=== PATIENT | male | born 1970 | race Caucasian/White ===

== ENCOUNTER → 2016-08-31 | Outpatient (CLI) | payer BC ==
[2016-08-31 13:15] LABS: Basophils % (A) 1 %; CH 31.8; CHCM 36.5; Eosinophils # (A) 0.2 k/uL (0-0.7); Eosinophils % (A) 2 %; HGB 16.5 gm/dL (13.0-17.5); Luc # (Auto) 0.16; Luc % (Auto) 2; Lymphocytes # (A) 2.5 k/uL (1.0-4.8); Lymphocytes % (A) 32 %; MCH 30.6 pg (25.0-35.0); MCV 87.3 fL (80.0-100.0); Mean Platelet Volume 7.2; Monocytes # (A) 0.3 k/uL (0-1.0); Monocytes % (A) 4 %; Neutrophils # (A) 4.5 k/uL (1.3-7.7); Neutrophils % (A) 59 %; RBC 5.39 m/uL (4.30-5.90); RDW 13.6 % (11.5-15.5); WBC 7.6 k/uL (3.8-10.6); WBC (Perox) 7.79
[2016-08-31 13:35] LABS: ALT 114 U/L (21-72); AST 65 U/L (17-59); Alkaline Phosphatase 99 U/L (38-126); Anion Gap 11 mmol/L; Blood Urea Nitrogen 12 mg/dL (9-20); Calcium 9.8 mg/dL (8.4-10.2); Carbon Dioxide 27 mmol/L (22-30); Chloride 102 mmol/L (98-107); Cholesterol 200 mg/dL (<200); Glucose 146 mg/dL (74-99); HDL Cholesterol 48 mg/dL (40-60); Non-African American GFR(MDRD) >60 (>60 ml/min/1.73 sqM); Potassium 4.3 mmol/L (3.5-5.1); Sodium 140 mmol/L (137-145); Total Bilirubin 1.1 mg/dL (0.2-1.3); Total Protein 7.8 g/dL (6.3-8.2); Triglycerides 109 mg/dL (<150)
[2016-08-31 15:09] LABS: Erythrocyte Sedimentation Rate 8 mm/hr (0-15)
== END | disposition home or self-care (01) ==
LOC: LABWHC1 12:59
PROVIDERS: ATTEND Internal Medicine
DX: E78.2 Mixed hyperlipidemia (principal); I10 Essential (primary) hypertension
CPT/HCPCS: 36415; 80053; 80061; 85025; 85652

== ENCOUNTER → 2016-10-27 | Outpatient (CLI) | payer BC ==
--- NOTE | 2016-10-27 15:06 | CONS ---
DATE OF SERVICE: 10/27/2016 A 46-year-old gentleman who has been evaluated in the [facility] for obstructive sleep apnea hypopnea syndrome. HISTORY OF PRESENT ILLNESS/SLEEP-WAKE EVALUATION: Patient has been diagnosed with severe obstructive sleep apnea-hypopnea syndrome from result of home sleep study 2 years ago. For different reason at that time, he was not able to proceed with CPAP therapy. At the present time, patient continues to have his symptoms of tiredness, sleepiness, snoring and awakenings from sleep. His sleep schedule from 1 to 2 a.m. until 8 - 9 a.m. basically 7 days as week, sometimes he has problem with the falling asleep. He has TV set in bedroom. Prefers to sleep on the side. He snores and has episodes of stop breathing during the sleep. He is grinding his teeth. He wakes up from sleep 3 times with nocturia. In the morning, he feels tired, falling asleep during the day. Ortley sleepiness scale, significantly increased to 15. Past medical history positive for hypertension, multiple ear problems. PAST SURGICAL HISTORY: Multiple surgery on the ears for holes and infection, status post surgical treatment of lipoma of the left arm and umbilical hernia. MEDICATIONS: Amlodipine. SOCIAL HISTORY: Negative for smoking, alcohol consumption occasional. FAMILY HISTORY: Hypertension, arthritis, sleep apnea, snoring, cancer, diabetes. REVIEW OF SYSTEMS: Multiple awakenings from sleep, sleepiness during the day. During physical exam, a 46-year-old gentleman without distress. BP 129/87, HR 88, RR is 16, 5, 11, weight 323, BMI 45, neck 19-3/4 inches in circumference, temperature 98.8, oxygen saturation on room air 95%. OROPHARYNX: Moderately low position of soft palate, significantly stricture of nasal breathing on the left side. ABDOMEN: Obese. EXTREMITIES: Tendency for swelling of ankles. NECK: Supple, No JVD. Thyroid is not palpable. LUNGS: Clear to percussion and to auscultation. Good air exchange. No wheezing or rhonchi. HEART: S1, s2 regular. No murmurs, gallops or rubs. VIDEO EDITING INTERN: Awake, alert, and oriented x3. Cranial nerves 2 to 7 intact. There is no fasciculation or atrophy noted. No focal deficits observed. IMPRESSION: 1. Snoring, witnessed episodes of stopped breathing during the sleep, history of severe obstructive sleep apnea documented by home sleep apnea test 2 years ago. Moderately low soft palate, sleepiness, Ortley Sleepiness scale to 15, obstructive apnea-hypopnea syndrome. 2. Obesity. 3. Hypertension. 4. Status post multiple ear surgeries for holes in the eardrums and infections. 5. Status post left arm lipoma removed. 6. Status post umbilical hernia treatment. PLAN: 1. Home sleep apnea test for reevaluation of patient breathing during the sleep. 2. Titration with positive air pressure. 3. Watching and losing weight. 4. Sleep hygiene with regular time in bed for at least 8 hours. 5. No driving if feeling any sleepiness. Thank you very much for referring this patient for consultation. Sincerely, Sami Perez MD, PhD, FAASM. Diplomat of [place] [employer], Sleep Medicine Board by [place] [employer] Forensics Analyst of [facility] [place] [facility]
== END | disposition home or self-care (01) ==
LOC: SLEEP 11:35
PROVIDERS: ATTEND Internal Medicine
DX: G47.33 Obstructive sleep apnea (adult) (pediatric) (principal); E66.9 Obesity, unspecified; I10 Essential (primary) hypertension
CPT/HCPCS: 99211

== ENCOUNTER 2017-07-08 16:44 | Inpatient (IN) | payer BC ==
[2017-07-08] MEDS ORDERED: SODIUM CHLORIDE 0.9% 500 ML IV STA (17:12)
[2017-07-08] MEDS ORDERED: HEPARIN SODIUM,PORCINE 5,000 UNIT/ML 1 ML VIAL IV ONE (17:13)
[2017-07-08] MEDS ORDERED: DILTIAZEM 5 MG/ML 5 ML VIAL IV STA ×2 (17:17→18:58)
--- NOTE | 2017-07-08 17:17 | ED ---
General Adult HPI - General Chief complaint: Arrhythmia/Palpitations Stated complaint: Chest pain/sob Time Seen by Provider: 07/08/17 16:50 Source: patient, RN notes reviewed Mode of arrival: wheelchair Limitations: no limitations - History of Present Illness Initial comments: This is a 47-year-old male who presents emergency Department with past medical history significant for high cholesterol. Patient states he was just going to a movie today when all of a sudden he felt his heart start to race he became a little bit lightheaded and had some ache in his shoulders. Patient states he has no heart history. Patient denies any smoking. Patient states he wasn't short of breath or having difficulty breathing at that time. Patient states it didn't feel right side to come the hospital. Patient denies abdominal pain patient denies nausea vomiting diarrhea. Patient denies any recent fever chills or cough. Patient denies headache patient denies numbness weakness. - Related Data Home Medications Medication Instructions Recorded Confirmed amLODIPine BESYLATE/BENAZEPRIL 1 tab PO DAILY 09/07/15 09/09/15 [Amlodipine-Benazepril 10-20 mg] Previous Rx's Medication Instructions Recorded Ibuprofen [Motrin] 600 mg PO Q6HR PRN #30 tab 09/09/15 Allergies Allergy/AdvReac Type Severity Reaction Status Date / Time No Known Allergies Allergy Verified 07/08/17 16:51 Review of Systems ROS Statement: Those systems with pertinent positive or pertinent negative responses have been documented in the HPI. ROS Other: All systems not noted in ROS Statement are negative. Past Medical History Past Medical History: Hypertension, Pneumonia Additional Past Medical History / Comment(s): hx gout, History of Any Multi-Drug Resistant Organisms: None Reported Past Surgical History: Adenoidectomy, Ear Surgery, Hernia Repair, Orthopedic Surgery, Tonsillectomy Additional Past Surgical History / Comment(s): left knee arthroscopy, mult ear surgeries-abiola Past Anesthesia/Blood Transfusion Reactions: Motion Sickness Past Psychological History: No Psychological Hx Reported Smoking Status: Never smoker Past Alcohol Use History: Occasional Past Drug Use History: None Reported - Past Family History Mother Family Medical History: No Reported History General Exam - General Exam Comments Initial Comments: GENERAL: Patient is well-developed and well-nourished. Patient is nontoxic and well- hydrated and is in mild distress. ENT: Neck is soft and supple. No significant lymphadenopathy is noted. Oropharynx is clear. Moist mucous membranes. Neck has full range of motion without eliciting any pain. EYES: The sclera were anicteric and conjunctiva were pink and moist. Extraocular movements were intact and pupils were equal round and reactive to light. Eyelids were unremarkable. PULMONARY: Unlabored respirations. Good breath sounds bilaterally. No audible rales rhonchi or wheezing was noted. CARDIOVASCULAR: Patient is tachycardic at 150 beats a minute. ABDOMEN: Soft and nontender with normal bowel sounds. No palpable organomegaly was noted. There is no palpable pulsatile mass. SKIN: Skin is clear with no lesions or rashes and otherwise unremarkable. NEUROLOGIC: Patient is alert and oriented x3. Cranial nerves II through XII are grossly intact. Motor and sensory are also intact. Normal speech, volume and content. Symmetrical smile. MUSCULOSKELETAL: Normal extremities with adequate strength and full range of motion. No lower extremity swelling or edema. No calf tenderness. LYMPHATICS: No significant lymphadenopathy is noted PSYCHIATRIC: Normal psychiatric evaluation. Normal interpersonal interactions appears functionally intact in deals appropriately with others. No signs of depression. No signs of anxiety. No delusions. No hallucinations. Limitations: no limitations Course Vital Signs 07/08/17 07/08/17 07/08/17 16:49 18:26 18:57 Temperature 98.8 F Pulse Rate 68 156 H 215 H Respiratory 18 20 18 Rate Blood Pressure 134/87 114/55 124/52 O2 Sat by Pulse 97 96 96 Oximetry 07/08/17 07/08/17 19:00 19:12 Temperature Pulse Rate 206 H 101 H Respiratory 18 18 Rate Blood Pressure 129/74 114/61 O2 Sat by Pulse 96 96 Oximetry Medical Decision Making - Medical Decision Making EKG shows atrial fibrillation with rapid ventricular response at 160 bpm QRS is 92 QT interval 302 QTC is 492. Patient's EKG shows no ST segment elevation or depression or T wave abnormalities are noted. Patient was placed on heparin and Cardizem after a couple of boluses of Cardizem. Patient converted to a normal sinus rhythm after about half an hour on a Cardizem drip. I spoke with the [facility] physician and admitted the patient. I continued the Cardizem drip and heparin. - Lab Data Result diagrams: 07/08/17 16:55 07/08/17 16:55 Lab Results 04/07/08/17 07/08/17 Range/Units 16:55 16:55 16:55 WBC 11.3 H (3.8-10.6) k/uL RBC 5.64 (4.30-5.90) m/uL Hgb 17.2 (13.0-17.5) gm/dL Hct 48.0 (39.0-53.0) % MCV 85.2 (80.0-100.0) fL MCH 30.4 (25.0-35.0) pg MCHC 35.7 (31.0-37.0) g/dL RDW 13.6 (11.5-15.5) % Plt Count 182 (150-450) k/uL Neutrophils % 67 % Lymphocytes % 25 % Monocytes % 4 % Eosinophils % 1 % Basophils % 1 % Neutrophils # 7.5 (1.3-7.7) k/uL Lymphocytes # 2.9 (1.0-4.8) k/uL Monocytes # 0.5 (0-1.0) k/uL Eosinophils # 0.1 (0-0.7) k/uL Basophils # 0.1 (0-0.2) k/uL Hyperchromasia Slight PT (9.0-12.0) sec INR (<1.2) APTT (22.0-30.0) sec Sodium 142 (137-145) mmol/L Potassium 3.8 (3.5-5.1) mmol/L Chloride 98 (98-107) mmol/L Carbon Dioxide 28 (22-30) mmol/L Anion Gap 16 mmol/L BUN 17 (9-20) mg/dL Creatinine 1.10 (0.66-1.25) mg/dL Est GFR (CKD-EPI)AfAm >90 (>60 ml/min/1.73 sqM) Est GFR (CKD-EPI)NonAf 80 (>60 ml/min/1.73 sqM) Glucose 202 H (74-99) mg/dL Calcium 10.4 H (8.4-10.2) mg/dL Magnesium 1.6 (1.6-2.3) mg/dL Total Bilirubin 1.0 (0.2-1.3) mg/dL AST 74 H (17-59) U/L ALT 117 H (21-72) U/L Alkaline Phosphatase 112 (38-126) U/L Total Creatine Kinase 478 H (55-170) U/L CK-MB (CK-2) 3.2 H* (0.0-2.4) ng/mL CK-MB (CK-2) Rel Index 0.7 Troponin I 0.013 (0.000-0.034) ng/mL Total Protein 8.0 (6.3-8.2) g/dL Albumin 4.6 (3.5-5.0) g/dL TSH 3.170 (0.465-4.680) mIU/L Urine Opiates Screen (NotDetected) Ur Oxycodone Screen (NotDetected) Urine Methadone Screen (NotDetected) Ur Propoxyphene Screen (NotDetected) Ur Barbiturates Screen (NotDetected) U Tricyclic Antidepress (NotDetected) Ur Phencyclidine Scrn (NotDetected) Ur Amphetamines Screen (NotDetected) U Methamphetamines Scrn (NotDetected) U Benzodiazepines Scrn (NotDetected) Urine Cocaine Screen (NotDetected) U Marijuana (THC) Screen (NotDetected) 07/08/17 07/08/17 Range/Units 16:55 19:10 WBC (3.8-10.6) k/uL RBC (4.30-5.90) m/uL Hgb (13.0-17.5) gm/dL Hct (39.0-53.0) % MCV (80.0-100.0) fL MCH (25.0-35.0) pg MCHC (31.0-37.0) g/dL RDW (11.5-15.5) % Plt Count (150-450) k/uL Neutrophils % % Lymphocytes % % Monocytes % % Eosinophils % % Basophils % % Neutrophils # (1.3-7.7) k/uL Lymphocytes # (1.0-4.8) k/uL Monocytes # (0-1.0) k/uL Eosinophils # (0-0.7) k/uL Basophils # (0-0.2) k/uL Hyperchromasia PT 10.4 (9.0-12.0) sec INR 1.1 (<1.2) APTT 22.9 (22.0-30.0) sec Sodium (137-145) mmol/L Potassium (3.5-5.1) mmol/L Chloride (98-107) mmol/L Carbon Dioxide (22-30) mmol/L Anion Gap mmol/L BUN (9-20) mg/dL Creatinine (0.66-1.25) mg/dL Est GFR (CKD-EPI)AfAm (>60 ml/min/1.73 sqM) Est GFR (CKD-EPI)NonAf (>60 ml/min/1.73 sqM) Glucose (74-99) mg/dL Calcium (8.4-10.2) mg/dL Magnesium (1.6-2.3) mg/dL Total Bilirubin (0.2-1.3) mg/dL AST (17-59) U/L ALT (21-72) U/L Alkaline Phosphatase (38-126) U/L Total Creatine Kinase (55-170) U/L CK-MB (CK-2) (0.0-2.4) ng/mL CK-MB (CK-2) Rel Index Troponin I (0.000-0.034) ng/mL Total Protein (6.3-8.2) g/dL Albumin (3.5-5.0) g/dL TSH (0.465-4.680) mIU/L Urine Opiates Screen Not Detected (NotDetected) Ur Oxycodone Screen Not Detected (NotDetected) Urine Methadone Screen Not Detected (NotDetected) Ur Propoxyphene Screen Not Detected (NotDetected) Ur Barbiturates Screen Not Detected (NotDetected) U Tricyclic Antidepress Not Detected (NotDetected) Ur Phencyclidine Scrn Not Detected (NotDetected) Ur Amphetamines Screen Not Detected (NotDetected) U Methamphetamines Scrn Not Detected (NotDetected) U Benzodiazepines Scrn Not Detected (NotDetected) Urine Cocaine Screen Not Detected (NotDetected) U Marijuana (THC) Screen Not Detected (NotDetected) Critical Care Time Critical Care Time: Yes Total Critical Care Time: 35 Disposition Clinical Impression: Atrial fibrillation with rapid ventricular response Disposition: ADMITTED IP TO THIS HOSP Is patient prescribed a controlled substance at d/c from ED?: No Referrals: Federico Torres MD [Primary Care Provider] - 1-2 days Time of Disposition: 19:47
[2017-07-08 17:33] LABS: Basophils # (A) 0.1 k/uL (0-0.2); Basophils % (A) 1 %; Eosinophils # (A) 0.1 k/uL (0-0.7); Eosinophils % (A) 1 %; HGB 17.2 gm/dL (13.0-17.5); Hyperchromasia Slight; Lymphocytes # (A) 2.9 k/uL (1.0-4.8); Lymphocytes % (A) 25 %; MCH 30.4 pg (25.0-35.0); MCHC 35.7 g/dL (31.0-37.0); MCV 85.2 fL (80.0-100.0); Mean Platelet Volume 7.8; Monocytes # (A) 0.5 k/uL (0-1.0); Monocytes % (A) 4 %; Neutrophils # (A) 7.5 k/uL (1.3-7.7); Neutrophils % (A) 67 %; Platelet Count 182 k/uL (150-450); RBC 5.64 m/uL (4.30-5.90); RDW 13.6 % (11.5-15.5); WBC 11.3 k/uL (3.8-10.6)
[2017-07-08] MEDS: HEPARIN SOD,PORK IN 0.45% NACL 25,000 UNIT in 0.45% NACL 1 500ML.BAG IV SCH (17:39)
[2017-07-08 17:43] LABS: INR 1.1 (<1.2); Partial Thromboplastin Time 22.9 sec (22.0-30.0); Prothrombin Time 10.4 sec (9.0-12.0)
[2017-07-08 17:59] LABS: ALT 117 U/L (21-72); AST 74 U/L (17-59); Albumin 4.6 g/dL (3.5-5.0); Alkaline Phosphatase 112 U/L (38-126); Anion Gap 16 mmol/L; Blood Urea Nitrogen 17 mg/dL (9-20); Calcium 10.4 mg/dL (8.4-10.2); Carbon Dioxide 28 mmol/L (22-30); Chloride 98 mmol/L (98-107); Glucose 202 mg/dL (74-99); Magnesium 1.6 mg/dL (1.6-2.3); Potassium 3.8 mmol/L (3.5-5.1); Sodium 142 mmol/L (137-145)
[2017-07-08 18:10] LABS: Troponin I 0.013 ng/mL (0.000-0.034)
[2017-07-08 18:20] LABS: Creatine Kinase MB 3.2 ng/mL (0.0-2.4)
[2017-07-08] MEDS: DILTIAZEM 50 MG in SODIUM CHLORIDE 0.9% 40 ML IV ONE ×2 (18:26→21:53)
--- NOTE | 2017-07-08 18:28 | XR ---
EXAMINATION TYPE: XR chest 2V DATE OF EXAM: 07/08/2017 COMPARISON: Chest x-ray September 07, 2011 HISTORY: Dysrhythmia. TECHNIQUE: Frontal and lateral views of the chest are obtained. FINDINGS: There is chronic parenchymal change without suspicious focal air space opacity, pleural ef fusion, or pneumothorax seen. The cardiac silhouette size is within normal limits. There are some mu ltilevel spurring in the upper lumbar spine. IMPRESSION: No acute cardiopulmonary process. No significant change from prior.
[2017-07-08] MEDS ORDERED: DILTIAZEM 5 MG/1 ML (25ML VIAL) IV STA (18:58)
[2017-07-08 19:29] LABS: Amphetamine Screen,Urine Not Detected (NotDetected); Barbiturate Screen,Urine Not Detected (NotDetected); Benzodiazepines Screen,Urine Not Detected (NotDetected); Cocaine Screen,Urine Not Detected (NotDetected); Methadone Screen, Urine Not Detected (NotDetected); Opiate Screen,Urine Not Detected (NotDetected); Oxycodone Screen, Urine Not Detected (NotDetected); Phencyclidine Screen,Urine Not Detected (NotDetected); Tricyclic Antidepressant,Urine Not Detected (NotDetected); Urn Cannabinoid Scrn Not Detected (NotDetected)
[2017-07-08] MEDS ORDERED: NITROGLYCERIN SL TABS 0.4 MG TAB SUBLINGUAL PRN (19:48)
[2017-07-08] MEDS ORDERED: NALOXONE 0.4 MG/ML 1 ML VIAL IV PRN (22:12)
--- NOTE | 2017-07-08 22:44 | P.HPIM ---
History of Present Illness H&P Date: 07/08/17 Chief Complaint: Heart racing 47-year-old male with history of hyperlipidemia, obstructive sleep apnea, and hypertension. Patient presented to the hospital with sudden onset palpitations, he reported that he was going out on a date with his when suddenly he felt his heart is racing was associated with some lightheadedness dizziness, and some shoulder pain. He was concerned for which she decided come the hospital he said he felt his heart was beating too fast but that resolved on its own he ever felt like this before. He admits to high intake of caffeine. He also reports recent diagnosis of obstructive sleep apnea currently untreated as still going through titration studies to get the proper treatment. Patient denies any loss of consciousness with this event. Denies any nausea or vomiting. He is otherwise reports to be healthy and his job is physically demanding. He has never been diagnosed with atrial fibrillation before In the emergency department he was found to be in A. fib with RVR, he was given Cardizem boluses and then placed on a trip started on heparin drip. Currently patient seen and examined in the ED reports resolution of heart racing. Denies any chest pain or trouble breathing at this time. He feels back to normal. Advanced directives and CODE STATUS were discussed with the patient. Review of Systems Constitutional: Patient denies fever, denies chills, denies night sweating, denies significant weight changes Eyes: Patient denies visual changes, denies eye pain ENT: Patient denies ear pain, denies rhinorrhea, denies sore throat Cardiovascular: Patient denies chest pain, denies exertional dyspnea, denies peripheral leg edema, denies orthopnea, denies paroxysmal nocturnal dyspnea Respiratory:Patient denies cough, denies wheezing, denies shortness of breath Gastrointestinal: Patient denies diarrhea, denies constipation, denies nausea , denies vomiting, denies abdominal pain Genitourinary: Patient denies dysuria, denies hematuria, denies changes in urinary habits, denies genital lesions Musculoskeletal: Patient denies muscle pain, denies joint pain Psychiatric: Patient denies changes in mood or memory, denies suicidal ideation, denies anxiety Endocrine: Patient denies heat intolerance, denies cold intolerance, denies excessive thirst, denies polyuria Neurological: Patient denies focal neurologic deficits, denies weakness, denies numbness, denies tingling Hem/Lymphatic: Patient denies bleeding tendency, denies bruising, denies swollen lymph glands Allergic/Immun: Patient denies recent allergic reactions Skin: Patient denies rashes, denies pruritis, denies ulcers Past Medical History Past Medical History: Hypertension, Pneumonia Additional Past Medical History / Comment(s): hx gout, History of Any Multi-Drug Resistant Organisms: None Reported Past Surgical History: Adenoidectomy, Ear Surgery, Hernia Repair, Orthopedic Surgery, Tonsillectomy Additional Past Surgical History / Comment(s): left knee arthroscopy, mult ear surgeries-abiola, lipoma removal Past Anesthesia/Blood Transfusion Reactions: Motion Sickness Past Psychological History: No Psychological Hx Reported Smoking Status: Never smoker Past Alcohol Use History: Rare Past Drug Use History: None Reported - Past Family History Mother Family Medical History: Diabetes Mellitus Additional Family Medical History / Comment(s): LORENZO on his mother side of the family Father Family Medical History: Diabetes Mellitus Medications and Allergies Home Medications Medication Instructions Recorded Confirmed Type amLODIPine BESYLATE/BENAZEPRIL 1 cap PO DAILY 09/07/15 07/08/17 History [Amlodipine-Benazepril 10-20 mg] Allergies Allergy/AdvReac Type Severity Reaction Status Date / Time No Known Allergies Allergy Verified 07/08/17 16:51 Physical Exam Vitals: Vital Signs Temp Pulse Pulse Resp BP BP Pulse Ox 07/08/17 21:23 98.9 F 102 H 18 128/83 94 L 07/08/17 20:49 82 18 113/65 98 07/08/17 20:30 96 18 112/65 98 07/08/17 19:12 101 H 18 114/61 96 07/08/17 19:00 206 H 18 129/74 96 07/08/17 18:57 215 H 18 124/52 96 07/08/17 18:26 156 H 20 114/55 96 07/08/17 16:49 98.8 F 68 18 134/87 97 Intake and Output 07/08/17 07/08/17 07/08/17 06:59 14:59 22:59 Intake Total 17.25 Balance 17.25 Intake: Intake, IV Titration 17.25 Amount Diltiazem 50 mg In Sodium 17.25 Chloride 0.9% 40 ml @ 5 MG/HR 5 mls/hr IV .Q10H ONE Rx#:[id number] Other: Weight 144.8 kg Constitutional: No acute distress, conversant, pleasant, obese Eyes: Anicteric sclerae, moist conjunctiva, no lid-lag Pupils equal round reactive to light ENMT: NC/AT Crowded Oropharynx , no erythema, or exudates Neck: Supple, FROM, no masses, or JVD No carotid bruits No thyromegaly Lungs: Clear to auscultation Clear to percussion Normal respiratory effort, no accessory muscle use Cardiovascular: Heart regular in rate and rhythm, No murmurs, gallops, or rubs No peripheral edema Abdominal: Soft Nontender, no guarding, rebound or rigidity Abdomen moving with respiration Normoactive bowel sounds No hepatomegaly, No splenomegaly No palpable mass No abdominal wall hernia noted Skin: Normal temperature, tone, texture, turgor No induration No subcutaneous nodules No rash, lesions No ulcers Extremities: No digital cyanosis No clubbing Pedal pulses intact and symmetrical Radial pulses intact and symmetrical No calf tenderness Psychiatric: Alert and oriented to person, place and time Appropriate affect fair judgment Neuro Muscles Strength 5/5 in all 4 extremities Sensation to light touch grossly present throughout Cranial nerves II-XII grossly intact No focal sensory deficits Lymphatics: no palpable cervical or supraclavicular , or inguinal lymph nodes Results CBC & Chem 7: 07/08/17 16:55 07/08/17 16:55 Labs: Abnormal Lab Results - Last 24 Hours (Table) 07/08/17 07/08/17 07/08/17 Range/Units 16:55 16:55 16:55 WBC 11.3 H (3.8-10.6) k/uL Glucose 202 H (74-99) mg/dL Calcium 10.4 H (8.4-10.2) mg/dL AST 74 H (17-59) U/L ALT 117 H (21-72) U/L Total Creatine Kinase 478 H (55-170) U/L CK-MB (CK-2) 3.2 H* (0.0-2.4) ng/mL Thrombosis Risk Factor Assmnt - Choose All That Apply Each Factor Represents 1 point: Age 41-60 years, Obesity (BMI >25) Thrombosis Risk Factor Assessment Total Risk Factor Score: 2 Thrombosis Risk Factor Assessment Level: Low Risk Assessment and Plan Assessment: 47-year-old male with history of hypertension, hyperlipidemia, and obstructive sleep apnea is untreated currently. Presented to the hospital due to sudden onset of heart racing associated with symptoms of dizziness and lightheadedness. In the ED was found to be in atrial fibrillation however converted after starting Cardizem boluses and drip. Currently patient is asymptomatic Plan: #New onset paroxysmal A. fib, CHADS = 1 (for hypertension) ; however, patient was told that he almost have DM which can increase the score to 2, and make him qualify for anticoagulation Patient admits to high caffeine intake, was counseled on limiting his daily caffeine intake Patient has on treated obstructive sleep apnea, again he was counseled regarding compliance with treatment to help with management of his A. fib 2-D echocardiogram of the heart Continue with Cardizem drip Heparin drip for A. fib Cardiology consultation Check TSH monitoring manager #Hypercalcemia, unknown underlying cause Check parathyroid hormone Check angiotensin-converting enzyme Check vitamin D hydroxy and active vitamin D level IV fluid hydration for natriuresis Follow-up calcium levels Due to chronic parenchymal changes, I considered sarcoidosis workup as above #Elevated blood sugar Check A1c rule out diabetes mellitus #Elevated liver enzymes Check hepatitis panel Avoid hepatotoxic meds Check liver ultrasound #Hypertension currently controlled Continue with home medications Amlodipine and benazepril #Obstructive sleep apnea severe Currently untreated as patient still undergoing titration studies Patient counseled regarding the importance of compliance with treatment was prescribed to help with management of his A. fib #DVT prophylaxis Currently on heparin drip for A. fib Surrogate decision-maker: Patient's Belinda CODE STATUS: Full code Discussed with: Patient, ER, family Anticipated discharge: 48-[address]: Home A total of 50 minutes were spent on the care of this complex patient more than 50% of the time was spent in counseling and care coordination.
[2017-07-08] MEDS: SODIUM CHLORIDE 0.9% 1,000 ML IV SCH (22:59)
[2017-07-09] MEDS ORDERED: HEPARIN SODIUM,PORCINE 5,000 UNIT/ML 1 ML VIAL IV STA ×2 (00:41→07:07)
[2017-07-09 00:51] LABS: Troponin I 0.015 ng/mL (0.000-0.034)
[2017-07-09 01:04] LABS: Creatine Kinase MB 2.5 ng/mL (0.0-2.4)
[2017-07-09] MEDS: SODIUM CHLORIDE 0.9% 1,000 ML IV SCH ×2 (03:43→08:33)
[2017-07-09 06:35] LABS: Basophils % (A) 0 %; Eosinophils # (A) 0.1 k/uL (0-0.7); Eosinophils % (A) 2 %; HCT 41.3 % (39.0-53.0); HGB 14.6 gm/dL (13.0-17.5); Lymphocytes # (A) 2.9 k/uL (1.0-4.8); Lymphocytes % (A) 37 %; MCH 30.4 pg (25.0-35.0); MCHC 35.4 g/dL (31.0-37.0); MCV 85.8 fL (80.0-100.0); Mean Platelet Volume 8.1; Monocytes # (A) 0.4 k/uL (0-1.0); Monocytes % (A) 5 %; Neutrophils # (A) 4.3 k/uL (1.3-7.7); Neutrophils % (A) 55 %; Platelet Count 149 k/uL (150-450); RBC 4.81 m/uL (4.30-5.90); RDW 13.5 % (11.5-15.5); WBC 7.8 k/uL (3.8-10.6)
[2017-07-09 06:56] LABS: ALT 97 U/L (21-72); AST 57 U/L (17-59); Albumin 3.6 g/dL (3.5-5.0); Alkaline Phosphatase 87 U/L (38-126); Anion Gap 9 mmol/L; Blood Urea Nitrogen 15 mg/dL (9-20); Calcium 8.8 mg/dL (8.4-10.2); Carbon Dioxide 27 mmol/L (22-30); Chloride 103 mmol/L (98-107); Cholesterol 154 mg/dL (<200); Glucose 185 mg/dL (74-99); HDL Cholesterol 38 mg/dL (40-60); LDL Cholesterol,Calculated 86 mg/dL (0-99); Potassium 3.9 mmol/L (3.5-5.1); Sodium 139 mmol/L (137-145); Total Bilirubin 0.9 mg/dL (0.2-1.3); Total Protein 6.1 g/dL (6.3-8.2); Triglycerides 152 mg/dL (<150)
[2017-07-09 07:41] LABS: Creatine Kinase MB 2.3 ng/mL (0.0-2.4); Troponin I 0.028 ng/mL (0.000-0.034)
--- NOTE | 2017-07-09 08:13 | US ---
EXAMINATION TYPE: US liver DATE OF EXAM: 07/09/2017 COMPARISON: Previous study dated 02/11/2015. CLINICAL HISTORY: elevated liver enzymes. Elevated LFT's EXAM MEASUREMENTS: Liver Length: 19.7 cm Gallbladder Wall: 0.3 cm CBD: 0.3 cm Right Kidney: 14.0 x 5.8 x 5.8 cm Morbidly obese pt, difficult exam Pancreas: wnl, tail obscured by overlying bowel gas Liver: Enlarged, heterogeneous, difficult to penetrate, probable fatty sparing at tawanna and anterior to GB Gallbladder: wnl Evidence for sonographic Rankin's sign: No CBD: wnl Right Kidney: wnl Limited views of the pancreas are unremarkable. The liver is prominent measuring almost 20 cm. It is echogenic and likely fatty infiltrated. The gallbladder is normal. The gallbladder wall measures 3 mm. This common hepatic duct measures 3 mm . There is no sonographic Rankin's sign. The right kidney is normal. IMPRESSION: HEPATOMEGALY AND PROBABLE FATTY INFILTRATION OF THE LIVER.
--- NOTE | 2017-07-09 08:17 | P.PN ---
Subjective Progress Note Date: 07/09/17 Principal diagnosis: Atrial fibrillation Today patient is feeling good. He has no dizziness no shortness of breath no fever Objective - Vital Signs Vital signs: Vital Signs Temp 97.2 F L 07/09/17 04:00 Pulse 76 07/09/17 04:00 Resp 18 07/09/17 04:00 BP 119/68 07/09/17 04:00 Pulse Ox 98 07/09/17 04:00 Intake & Output 07/08/17 07/09/17 07/09/17 18:59 06:59 18:59 Intake Total 158.583 184.102 Output Total 700 Balance -541.417 184.102 Weight 154.221 kg 144.8 kg Intake: Intake, IV Titration 158.583 184.102 Amount Diltiazem 50 mg In Sodium 17.25 Chloride 0.9% 40 ml @ 5 MG/HR 5 mls/hr IV .Q10H [facility] Rx#:[id number] Heparin Sod,Pork in 0.45% 141.333 184.102 NaCl 25,000 unit In 0.45 % NaCl 1 500ml.bag @ 6. 485 UNITS/KG/HR 20 mls/hr IV .Q24H [facility] Rx#: [id number] Output: Urine 700 - Exam gen:alert and oriented lungs:clear to auscultation heart:s1s2, no murmurs abdomen:soft and depressible,non tender ext:no edema - Labs CBC & Chem 7: 07/09/17 06:08 07/09/17 06:08 Labs: Abnormal Lab Results - Last 24 Hours (Table) 07/08/17 07/08/17 07/08/17 Range/Units 16:55 16:55 16:55 WBC 11.3 H (3.8-10.6) k/uL Plt Count (150-450) k/uL APTT (22.0-30.0) sec Glucose 202 H (74-99) mg/dL Calcium 10.4 H (8.4-10.2) mg/dL AST 74 H (17-59) U/L ALT 117 H (21-72) U/L Total Creatine Kinase 478 H (55-170) U/L CK-MB (CK-2) 3.2 H* (0.0-2.4) ng/mL Total Protein (6.3-8.2) g/dL Triglycerides (<150) mg/dL HDL Cholesterol (40-60) mg/dL TSH (0.465-4.680) mIU/L 07/08/17 07/09/17 07/09/17 Range/Units 23:46 06:08 06:08 WBC (3.8-10.6) k/uL Plt Count (150-450) k/uL APTT (22.0-30.0) sec Glucose 185 H (74-99) mg/dL Calcium (8.4-10.2) mg/dL AST (17-59) U/L ALT 97 H (21-72) U/L Total Creatine Kinase 400 H 352 H (55-170) U/L CK-MB (CK-2) 2.5 H* (0.0-2.4) ng/mL Total Protein 6.1 L (6.3-8.2) g/dL Triglycerides 152 H (<150) mg/dL HDL Cholesterol 38 L (40-60) mg/dL TSH 5.090 H (0.465-4.680) mIU/L 07/09/17 07/09/17 Range/Units 06:08 06:08 WBC (3.8-10.6) k/uL Plt Count 149 L (150-450) k/uL APTT 33.7 H (22.0-30.0) sec Glucose (74-99) mg/dL Calcium (8.4-10.2) mg/dL AST (17-59) U/L ALT (21-72) U/L Total Creatine Kinase (55-170) U/L CK-MB (CK-2) (0.0-2.4) ng/mL Total Protein (6.3-8.2) g/dL Triglycerides (<150) mg/dL HDL Cholesterol (40-60) mg/dL TSH (0.465-4.680) mIU/L Assessment and Plan (1) Atrial fibrillation with rapid ventricular response Narrative/Plan: Cardizem drip Rate controlled Echo ordered Cardiology to follow Current Visit: Yes Status: Acute Code(s): I48.91 - UNSPECIFIED ATRIAL FIBRILLATION SNOMED Code(s): 715847980853136 (2) Hypertension Narrative/Plan: Controlled Continue Norvasc Current Visit: Yes Status: Acute Code(s): I10 - ESSENTIAL (PRIMARY) HYPERTENSION SNOMED Code(s): 52898383 (3) Hypercalcemia Narrative/Plan: Improved Current Visit: Yes Status: Acute Code(s): E83.52 - HYPERCALCEMIA SNOMED Code(s): 09720671 (4) Hyperglycemia Narrative/Plan: new diagnosis of diabetes mellitus await hba1c Current Visit: Yes Status: Acute Code(s): R73.9 - HYPERGLYCEMIA, UNSPECIFIED SNOMED Code(s): 25928323 (5) Sleep apnea Current Visit: Yes Status: Acute Code(s): G47.30 - SLEEP APNEA, UNSPECIFIED SNOMED Code(s): 60982090
[2017-07-09 08:18] LABS: T4, Free (Free Thyroxine) 1.09 ng/dL (0.78-2.19)
[2017-07-09] MEDS: LISINOPRIL 20 MG TAB PO SCH (08:29)
[2017-07-09] MEDS ORDERED: ASPIRIN 325 MG TAB PO SCH (09:00)
[2017-07-09] MEDS ORDERED: amLODIPine 10 MG TAB PO SCH (09:00)
[2017-07-09] MEDS: HEPARIN SOD,PORK IN 0.45% NACL 25,000 UNIT in 0.45% NACL 1 500ML.BAG IV SCH (11:00)
[2017-07-09 11:28] LABS: Vitamin D 25 Hydroxy 15.5 ng/mL (30.0-100.0)
[2017-07-09 13:15] LABS: Hepatitis A Antibody IgM Non-Reactive (Non-Reactive); Hepatitis B Core IgM Non-Reactive (Non-Reactive)
--- NOTE | 2017-07-09 13:31 | CONS ---
CONSULTATION Mr. Albrecht is a 47-year-old male with known history of hypertension who presented with symptoms of palpitations. He was yesterday with his when he felt palpitation, somewhat dizzy, uncomfortable, short of breath. He came into the emergency room, was noted to be in atrial fibrillation with rapid ventricular response and since that time, he converted back to sinus mechanism. The patient was active yesterday outside cleaning his yard and did not have any associated chest discomfort. He has no history of obstructive coronary artery disease, has underwent a stress test years ago that according to him was unremarkable. He has a history of sleep apnea and he is scheduled to received his CPAP. He has occasional palpitations on and off, but no documented atrial fibrillation. He has no history of orthopnea. No peripheral edema. He has no history of chest discomfort. He has some dyspnea on exertion. He is not very active physically and he admits that he is not compliant with good dietary intake. He drinks large amount of caffeinated beverages, but he is a nonsmoker and no alcohol. His coronary risk factors remarkable for hypertension. He is diabetic and he is diet controlled at this time. Trying to lose weight. He has no history of documented hyperlipidemia. MEDICATION: At home include: Amlodipine, benazepril 10-20 mg daily. REVIEW OF SYSTEMS: Respiratory system: He has the dyspnea. No history of wheezing. No cough. No document history of obstructive lung disease. GI system: No recent GI bleed. No peptic ulcer disease. system: No dysuria or hematuria. Nervous system: No stroke or seizure. PHYSICAL EXAMINATION: He is a 47-year-old male, alert, oriented, obese, in no apparent distress. Blood pressure 132/70 with a heart rate in the 70s. HEAD: Normocephalic. Eyes sclerae anicteric. Neck good carotid upstroke. No bruit. No jugular venous distention. LUNGS: Clear to auscultation. HEART: Regular rate and rhythm S1, S2. No S3. No rub. ABDOMEN: Soft, nontender, obese. Positive bowel sounds. No megaly. EXTREMITIES: No edema. Intact distal pulses. LAB DATA: BUN and creatinine 15 and 0.87, potassium 3.9, hemoglobin 14.6, troponin 0.013, 0.015, 0.028. His TSH is 5.0. His free T4 is 1.09. His blood sugar is 185 fasting. His hemoglobin is 14.6. His initial EKG revealed atrial fibrillation with a rapid ventricular response and evidence of aberrancy. Subsequent EKG revealed a sinus mechanism with a normal axis and intervals. No acute changes. His chest x-ray shows no evidence of acute changes. IMPRESSION: 1. Atrial fibrillation, paroxysmal, back in sinus mechanism. 2. Hypertension. 3. Obstructive sleep apnea. 4. Elevated blood sugars with diagnosis of diabetes mellitus, not on oral treatment at this point. 5. Obesity. RECOMMENDATIONS: The patient CHADS Vasc score is 2 and I would recommend to initiate anticoagulation. He will be started on Xarelto 20 mg daily. I will add Lopressor to his regimen. His amlodipine dose will be decreased. An echocardiogram with Doppler will be obtained. His level of activity will be increased. If remains stable. I expect he should be able to be discharged home tomorrow and followed as an outpatient. I have discussed with the patient the importance of changing his eating habits and his lifestyle and he understands the plan and the recommendations. Thank you for this consult. We will follow with you. MMODL / IJN: [id number] /
[2017-07-09] MEDS: METOPROLOL TARTRATE 25 MG TAB PO SCH ×2 (14:21→20:59)
[2017-07-09] MEDS: RIVAROXABAN 20 MG TAB PO SCH (18:47)
[2017-07-09 22:12] VITALS: RESP 16
[2017-07-10] MEDS: METOPROLOL TARTRATE 25 MG TAB PO SCH ×2 (08:16→21:25)
[2017-07-10] MEDS: LISINOPRIL 20 MG TAB PO SCH (08:16)
[2017-07-10] MEDS: amLODIPine 5 MG TAB PO SCH (08:17)
--- NOTE | 2017-07-10 12:17 | PN ---
PROGRESS NOTE Mr. Albrecht us a 47-year-old male who presented with evidence of atrial fibrillation. He came in with atrial fibrillation. He is back in sinus mechanism, he is doing well, ambulating without difficulty. Denying any chest pain. No dizziness, palpitation. He denies any nausea. He continues to be on lisinopril 20 mg daily, metoprolol tartrate 25 mg twice a day, and Xarelto 20 mg daily in addition to Norvasc 5 mg daily. PHYSICAL EXAMINATION: Blood pressure 134/90 with a heart in the 80s. LUNGS: Clear. HEART: Regular rate and rhythm, S1, S2. No S3. No rub. ABDOMEN: Soft, nontender. EXTREMITIES: No edema. LAB DATA: Revealed a BUN and creatinine of 15 and 0.8, potassium 3.9. IMPRESSION: 1. Paroxysmal atrial fibrillation. 2. Hypertension. 3. Probable obstructive sleep apnea. 4. Diabetes mellitus. RECOMMENDATION: I will review his office echocardiogram, if it is stable, he should be able to be discharged home today and followed as an outpatient. Of note, the patient's hemoglobin A1c was 9.0. MMODL / IJN: [id number] /
--- NOTE | 2017-07-10 12:23 | ECHOF ---
Referral Reason:new afib with RVR MEASUREMENTS -------- HEIGHT: 162.6 cm WEIGHT: 145.1 kg BP: 162/95 IVSd: 1.4 cm (0.6 - 1.1) LVIDd: 4.7 cm (3.9 - 5.3) LVPWd: 1.2 cm (0.6 - 1.1) IVSs: 1.7 cm LVIDs: 3.9 cm LVPWs: 1.4 cm LA Diam: 3.5 cm (2.7 - 3.8) LAESV Index (A-L): 41.30 ml/m Ao Diam: 4.3 cm (2.0 - 3.7) AV Cusp: 2.4 cm (1.5 - 2.6) LA Diam: 4.3 cm (2.7 - 3.8) MV EXCURSION: 28.503 mm (> 18.000) MV EF SLOPE: 113 mm/s (70 - 150) EPSS: 0.8 cm MV E Logan: 0.47 m/s MV DecT: 217 ms MV A Logan: 0.64 m/s MV E/A Ratio: 0.74 RAP: 5.00 mmHg RVSP: 19.39 mmHg FINDINGS -------- Sinus rhythm. This was a technically adequate study. The left ventricular size is normal. There is mild concentric left ventricular hypertrophy. Overa ll left ventricular systolic function is normal with, an EF between 55 - 60 %. The right ventricle is normal in size. The left atrium is mildly dilated. LA is severely dilated >40 ml/m2 The right atrial size is normal. There is mild aortic valve sclerosis. There is no evidence of aortic regurgitation. Mild mitral annular calcification present. Mild mitral regurgitation is present. Mild tricuspid regurgitation present. There is no evidence of pulmonary hypertension. The right v entricular systolic pressure, as measured by Doppler, is 19.39mmHg. There is no pulmonic regurgitation present. The aortic root size is normal. There is no pericardial effusion. CONCLUSIONS -------- 1. The left ventricular size is normal. 2. There is mild concentric left ventricular hypertrophy. 3. Overall left ventricular systolic function is normal with, an EF between 55 - 60 %. 4. The left atrium is mildly dilated. 5. LA is severely dilated >40 ml/m2 6. There is mild aortic valve sclerosis. 7. Mild mitral annular calcification present. 8. Mild mitral regurgitation is present. 9. Mild tricuspid regurgitation present. 10. There is no evidence of pulmonary hypertension. 11. The right ventricular systolic pressure, as measured by Doppler, is 19.39mmHg. 12. There is no pulmonic regurgitation present. 13. The aortic root size is normal. 14. There is no pericardial effusion. BELT BACK OPERATOR: Sue Rgoers RDCS
[2017-07-10 13:45] VITALS: BMI 44.6
--- NOTE | 2017-07-10 15:56 | P.PN ---
Subjective Progress Note Date: 07/10/17 Patient feeling good today, denies any issues with palpitations or heart racing or chest pain or shortness of breath. No acute events overnight reports that he recently had his echocardiogram results pending Objective - Vital Signs Vital signs: Vital Signs Temp 98 F 07/10/17 12:00 Pulse 75 07/10/17 12:00 Resp 16 07/10/17 12:00 BP 131/89 07/10/17 12:00 Pulse Ox 94 L 07/10/17 12:00 Intake & Output 07/09/17 07/10/17 07/10/17 18:59 06:59 18:59 Intake Total 1578.302 360 462 Output Total 500 Balance 1078.302 360 462 Weight 145.1 kg 145.1 kg Intake: Intake, IV Titration 1338.302 Amount Heparin Sod,Pork in 0.45% 338.302 NaCl 25,000 unit In 0.45 % NaCl 1 500ml.bag @ 6. 485 UNITS/KG/HR 20 mls/hr IV .Q24H [facility] Rx#: [id number] Sodium Chloride 0.9% 1, 1000 000 ml @ 200 mls/hr IV . Q5H [facility] Rx#:[id number] Oral 240 360 462 Output: Urine 500 Other: # Voids 1 1 # Bowel Movements 1 - Exam Constitutional: No acute distress, conversant, pleasant Eyes: Anicteric sclerae, moist conjunctiva, no lid-lag, PERRLA ENMT: NC/AT,Oropharynx clear, no erythema, exudates Neck:Supple, FROM, no masses, or JVD, No carotid bruits; No thyromegaly Lungs: Clear to auscultation, Clear to percussion, Normal respiratory effort, no accessory muscle use Cardiovascular: Heart regular in rate and rhythm, No murmurs, gallops, or rubs no peripheral edema Abdominal: Soft Nontender, nom distended, no guarding, no rebound or rigidity, Normoactive bowel sounds No hepatomegaly, No splenomegaly, No palpable mass No abdominal wall hernia noted Skin: Normal temperature, tone, texture, turgor, No induration No subcutaneous nodules, No rash, lesions, No ulcers Extremities:No digital cyanosis No clubbing, Pedal pulses intact and symmetrical Radial pulses intact and symmetrical Normal gait and station, No calf tenderness Psychiatric: Alert and oriented to person, place and time, Appropriate affect Intact judgement Neuro: Muscles Strength 5/5 in all 4 extremities, Sensation to light touch grossly present throughout, Cranial nerves II-XII grossly intact. No focal sensory deficits - Labs CBC & Chem 7: 07/09/17 06:08 07/09/17 06:08 Labs: Abnormal Lab Results - Last 24 Hours (Table) 07/09/17 Range/Units 06:08 Hemoglobin A1c 9.0 H (4.0-6.0) % Assessment and Plan (1) Paroxysmal atrial fibrillation with RVR Narrative/Plan: * Now resolved, does have a chads 2 vac2 score that requires anticoagulation currently on Xarelto * Continue with beta a[place] with metoprolol * Echocardiogram showing normal ejection fraction of 55-60% with a severely dilated left atrium Current Visit: Yes Status: Acute Code(s): I48.0 - PAROXYSMAL ATRIAL FIBRILLATION SNOMED Code(s): 875208566 (2) Type 2 diabetes mellitus with hyperglycemia Narrative/Plan: * New onset type 2 diabetes with a hemoglobin A1c of 9 * Patient started on metformin and trajenta. Diabetic education ordered along with Accu-Cheks every before meals and at bedtime Current Visit: Yes Status: Acute Code(s): E11.65 - TYPE 2 DIABETES MELLITUS WITH HYPERGLYCEMIA SNOMED Code(s): 023518376174998 (3) Vitamin D deficiency Narrative/Plan: * Current Visit: Yes Status: Acute Code(s): E55.9 - VITAMIN D DEFICIENCY, UNSPECIFIED SNOMED Code(s): 85769404 (4) Hypertension Narrative/Plan: Blood pressure elevated this morning but normalizing this afternoon we'll continue current antihypertensive regimen with the metoprolol lisinopril and Norvasc Current Visit: Yes Status: Acute Code(s): I10 - ESSENTIAL (PRIMARY) HYPERTENSION SNOMED Code(s): 66467605 Plan: * Continue to follow patient's blood sugars will likely be discharged home tomorrow, case management to set up glucometer and other diabetic supplies
[2017-07-10] MEDS ORDERED: ERGOCALCIFEROL 50,000 UNIT CAP PO SCH (16:00)
[2017-07-10 17:49] LABS: Glucose,Whole Blood 158 mg/dL (75-99)
[2017-07-10] MEDS: metFORMIN 500 MG TAB PO SCH (17:49)
[2017-07-10] MEDS: RIVAROXABAN 20 MG TAB PO SCH (17:49)
[2017-07-10 18:04] LABS: Appearance,Urine Clear (Clear); Bilirubin,Urine Negative (Negative); Blood,Urine Negative (Negative); Color,Urine Yellow; Glucose,Urine (UA) 1+ (Negative); Ketones,Urine Negative (Negative); Leukocyte Esterase,Urine Negative (Negative); Nitrite,Urine Negative (Negative); PH, Urine 5.5 (5.0-8.0); Protein,Urine Trace (Negative); Urobilinogen,Urine <2.0 mg/dL (<2.0)
[2017-07-10 20:46] LABS: Glucose,Whole Blood 142 mg/dL (75-99)
[2017-07-11 07:19] LABS: Glucose,Whole Blood 146 mg/dL (75-99)
[2017-07-11 07:44] VITALS: BP 132/77; PULSE 73; TEMP 97
[2017-07-11] MEDS: metFORMIN 500 MG TAB PO SCH (08:16)
[2017-07-11] MEDS: LISINOPRIL 20 MG TAB PO SCH (08:17)
[2017-07-11] MEDS: METOPROLOL TARTRATE 25 MG TAB PO SCH (08:17)
[2017-07-11] MEDS: amLODIPine 5 MG TAB PO SCH (08:17)
[2017-07-11] MEDS ORDERED: LINAGLIPTIN 5 MG TABLET PO SCH (09:00)
[2017-07-11] MEDS ORDERED: ATORVASTATIN 40 MG TAB PO SCH (09:00)
[2017-07-11 10:05] LABS: Glucose,Whole Blood 160 mg/dL (75-99)
[2017-07-11 11:46] LABS: Glucose,Whole Blood 147 mg/dL (75-99)
--- NOTE | 2017-07-11 12:32 | P.DS ---
Providers Date of admission: 07/08/17 19:47 Expected date of discharge: 07/11/17 Attending physician: Jennifer Mendoza MD Consults: 07/08/17 19:48 Consult Physician Urgent Consulting Provider: [facility] Consult Reason/Comments: A. fib with rapid ventricular response Do you want consulting provider notified?: Yes Primary care physician: Federico Torres - Discharge Diagnosis(es) (1) Paroxysmal atrial fibrillation with RVR Current Visit: Yes Status: Acute (2) Type 2 diabetes mellitus with hyperglycemia Current Visit: Yes Status: Acute (3) Vitamin D deficiency Current Visit: Yes Status: Acute (4) Hypertension Current Visit: Yes Status: Acute (5) Sleep apnea Current Visit: Yes Status: Acute (6) Hyperlipidemia Current Visit: Yes Status: Acute Hospital Course: The patient is a 47-year-old obese male that was admitted to [facility] and treated for paroxysmal A. fib with RVR after he presented with complaints of palpitations, she was started on Cardizem drip and heparin. Cardiology was consulted the patient was seen by Dr. Draper, echocardiogram was consistent with ejection fraction of 55-60% with a severely dilated left atrium. Given the patient's CHA2 VASC2 of 2 He was thought the patient be a good candidate for anticoagulation for stroke prophylaxis and he was transitioned to Xarelto. The patient subsequently converted Normal sinus rhythm and he was continued on metoprolol for rate control. Patient was formally diagnosed with type 2 diabetes with hyperglycemia after stating that he only had elevated blood sugars his A1c was 9.0. The patient was noted to have hyperglycemia on Accu-Cheks and he was started on metformin and should gentle while inpatient,the patient was seen by diabetic education and case management set up with diabetic supplies with glucometer test strips for the patient. The patient was noted to have a hypovitaminosis D and was subsequently started on ergocalciferol replacement 68596 units weekly. The patient was subsequently discharged home In stable condition With plans to follow up with his PCP Dr. Torres. New prescriptions at discharge Janumet XR 50 /1000mg twice a day, Xarelto 20mg daily, Lipitor 40 mg by mouth daily, metoprolol 25 mg by mouth twice a day. This discharge process took approximately 35 minutes. Patient Condition at Discharge: Good Plan - Discharge Summary Discharge Rx Participant: No New Discharge Prescriptions: New Metoprolol Tartrate [Lopressor] 25 mg PO BID #60 tab Rivaroxaban [Xarelto] 20 mg PO W/SUPPER #30 tab Atorvastatin [Lipitor] 40 mg PO DAILY #30 tab Ergocalciferol [Vitamin D2 (DRISDOL)] 50,000 unit PO Q7D #8 cap sitaGLIPtin PHOS/metFORMIN HCL [Janumet Xr 50-1,000 mg Tablet] 1 each PO AC- BID #60 tbmp.24hr Continue amLODIPine BESYLATE/BENAZEPRIL [Amlodipine-Benazepril 10-20 mg] 1 cap PO DAILY Discharge Medication List amLODIPine BESYLATE/BENAZEPRIL [Amlodipine-Benazepril 10-20 mg] 1 cap PO DAILY 09/07/15 [History] Atorvastatin [Lipitor] 40 mg PO DAILY #30 tab 07/10/17 [Rx] Metoprolol Tartrate [Lopressor] 25 mg PO BID #60 tab 07/10/17 [Rx] Rivaroxaban [Xarelto] 20 mg PO W/SUPPER #30 tab 07/10/17 [Rx] Ergocalciferol [Vitamin D2 (DRISDOL)] 50,000 unit PO Q7D #8 cap 07/11/17 [Rx] sitaGLIPtin PHOS/metFORMIN HCL [Janumet Xr 50-1,000 mg Tablet] 1 each PO AC-BID #60 tbmp.24hr 07/11/17 [Rx] Follow up Appointment(s)/Referral(s): Randi Draper MD [STAFF PHYSICIAN] - 07/28/17 3:30 pm Federico Torres MD [Primary Care Provider] - 07/13/17 11:45 am Patient Instructions/Handouts: A-fib (Atrial Fibrillation) (DC), Type 2 Diabetes in Adults (DC), Diabetic Hyperglycemia (DC), Safe Use of Anticoagulants (DC), Diabetes and Your Skin (DC) Activity/Diet/Wound Care/Special Instructions: pt provided with free Glucometer coupon and signed prescription for glucometer and supplies. pt provided free 30 day and $10/month Xarelto coupons along with a signed prescription for Xarelto [facility]: [phone]. Patient would like third follow up appointment made for his final approval for BIPAP before discharge.
== END 2017-07-11 13:38 | disposition home or self-care (01) | DRG 309 ==
LOC: EC 16:44 → 6SEL 19:47 → 4MS4W 07-10 19:06
PROVIDERS: ADMIT Internal Medicine; ATTEND Internal Medicine
DX: I48.0 Paroxysmal atrial fibrillation (principal); Z68.41 Body mass index [BMI] 40.0-44.9, adult; E11.65 Type 2 diabetes mellitus with hyperglycemia; E55.9 Vitamin D deficiency, unspecified; E66.9 Obesity, unspecified; E78.00 Pure hypercholesterolemia, unspecified; G47.33 Obstructive sleep apnea (adult) (pediatric); I10 Essential (primary) hypertension; Z83.3 Family history of diabetes mellitus; Z79.899 Other long term (current) drug therapy; Z87.01 Personal history of pneumonia (recurrent); M10.9 Gout, unspecified; R94.5 Abnormal results of liver function studies
CPT/HCPCS: 36415; 71046; 76705; 80053; 80061; 80074; 80306; 81003; 82164; 82306; 82550; 82553; 82652; 83036; 83735; 83970; 84439; 84443; 84484; 85025; 85610; 85730; 93005; 93306; 94760; 96365; 96366; 96368; 96376; 99291

== ENCOUNTER → 2017-07-27 | Outpatient (CLI) | payer BC ==
--- NOTE | 2017-07-27 17:23 | PN ---
PROGRESS NOTE DATE OF SERVICE: 07/27/2017 47-year-old gentleman has been followed in [facility] for treatment of obstructive sleep apnea-hypopnea syndrome. The patient was diagnosed with severe sleep apnea by results of home sleep apnea test which was done 10/2016 last year. At that time, apnea-hypopnea index was 83.3 with oxygen desaturation to severely low 55%. The patient underwent CPAP titration after that, but CPAP titration was not effective. The patient continued to have abnormalities of respiration and he was recommended to have BiPAP titration. BiPAP titration done this year and during BiPAP titration with blood pressure 12/8, the patient respiration was under control. At that pressure, apnea-hypopnea index reduced to 1.7 with oxygen level above 90.8%. Patient continued to have problems with awakenings from sleep while he did not get his machine yet. He snores. He feels significant sleepiness during the day. [place] Sleepiness Scale is 17. MEDICATIONS: Amlodipine. PHYSICAL EXAM: GENERAL: A 47-year-old gentleman without distress. BP 110/60, HR 66, RR 16, weight 314, height 5 feet 1 inch, BMI 43.7, temperature 98. The patient has lost 9 pounds since titration. Oropharynx extremely low position of soft palate. Neck Supple, no JVD. Thyroid is not palpable. LUNGS Clear to percussion and to auscultation. Good air exchange. No wheezing or rhonchi. HEART S1, S2 regular. No murmurs, gallops, or rubs. ABDOMEN: Obese. Soft and nontender. Bowel sounds are present. No organomegaly appreciated. EXTREMITIES No clubbing or cyanosis. WORKING FOREMAN Awake, alert, and oriented X3. Cranial nerves 2 to 7 intact. There is no fasciculation or atrophy. noted. No focal deficits observed. IMPRESSION: 1. Extremely severe obstructive sleep apnea-hypopnea syndrome; apnea-hypopnea index 83 with oxygen saturation 55%, by results of titration was on control with BiPAP 12/8 cm of water. 2. Obesity. 3. Hypertension. 4. History of episode of atrial fibrillation 3 weeks ago. 5. Status post multiple ear surgery. 6. Status post left arm lipoma removed. 7. Status post umbilical hernia treatment. PLAN: 1. Patient should be started on treatment with BiPAP as soon as possible. 2. He will use equipment every night for the whole night. 3. Losing weight. 4. Sleep hygiene with regular time in bed for at least 8 hours. 5. No driving if feeling sleepiness. Thank you very much for allowing me to participate in management of your patient. Sincerely, Sami Perez MD, PhD, FAASM Diplomat of [place] [employer] [employer] Access[employer] Salesperson of [facility] [place] MMODL / RICKIEN: [id number] /
== END | disposition home or self-care (01) ==
LOC: SLEEP 16:16
PROVIDERS: ATTEND Internal Medicine
DX: G47.33 Obstructive sleep apnea (adult) (pediatric) (principal); E66.9 Obesity, unspecified; I10 Essential (primary) hypertension; I48.91 Unspecified atrial fibrillation; Z86.018 Personal history of other benign neoplasm; Z79.899 Other long term (current) drug therapy; Z99.89 Dependence on other enabling machines and devices; Z68.41 Body mass index [BMI] 40.0-44.9, adult

== ENCOUNTER → 2017-10-12 | Outpatient (CLI) | payer BC ==
--- NOTE | 2017-10-12 17:42 | PN ---
PROGRESS NOTE DATE OF SERVICE: 10/12/2017 A 47-year-old gentleman has been followed in Sleep Center for treatment of severe obstructive sleep apnea-hypopnea syndrome. Recently patient has been diagnosed with extremely severe obstructive sleep apnea with apnea-hypopnea index 83 and recently was started on treatment with BiPAP. Today is his first visit with his BiPAP unit. The patient feels better with BiPAP therapy. He sleeps better and feels better during the day. [place] Sleepiness Scale is 8. I checked his BiPAP unit, BiPAP pressure is 12/8 cm of water. Usage is 30/30 nights but 12/30 nights for more than 4 hours. Average usage is 3.8 hours. Leak is acceptable 30 L/minute. Apnea-hypopnea index for the last month is 5.9. MEDICATIONS: Amlodipine. PHYSICAL EXAM: Patient in no distress. BP 110/65, HR 69, RR 16, weight 311.6, temperature 98.3, oxygen saturation on room air 95%. Oropharynx: Low position of soft palate. ABDOMEN: Obese. Neck Supple, no JVD. Thyroid is not palpable. LUNGS Clear to percussion and to auscultation. Good air exchange. No wheezing or rhonchi. HEART S1, S2 regular. No murmurs, gallops, or rubs. ABDOMEN: Obese. Soft and nontender. Bowel sounds are present. No organomegaly appreciated. EXTREMITIES No clubbing or cyanosis. TRACTOR MECHANIC Awake, alert, and oriented X3. Cranial nerves 2 to 7 intact. There is no fasciculation or atrophy. noted. No focal deficits observed. IMPRESSION: 1. Severe obstructive sleep apnea-hypopnea syndrome. Apnea-hypopnea index 83 mostly on control with BiPAP on the pressure of 12/8 cm of water. 2. Obesity. 3. Hypertension. 4. History of an episode of atrial fibrillation. 5. Status post multiple ear surgery. 6. Status post left arm lipoma removed. 7. Status post umbilical hernia treatment. PLAN: 1. Continue treatment with BiPAP every night for the whole night. 2. Losing weight. 3. Sleep hygiene with regular time in bed for at least 8 hours. 4. No driving if feeling sleepiness. 5. We will follow with prescriptions followup necessary BiPAP supplies including mask, tube, filters. Thank you very much for allowing me to participate in management of your patient. Sincerely, Sami Perez MD, PhD, FAASM Diplomat of [place] [employer] [place] [employer] Operator of [facility] [place] MMMOHSEN / [place]: [id number] /
== END | disposition home or self-care (01) ==
LOC: SLEEP 13:49
PROVIDERS: ATTEND Internal Medicine
DX: G47.33 Obstructive sleep apnea (adult) (pediatric) (principal); E66.9 Obesity, unspecified; I10 Essential (primary) hypertension; I48.91 Unspecified atrial fibrillation; Z98.890 Other specified postprocedural states; Z99.89 Dependence on other enabling machines and devices; Z79.899 Other long term (current) drug therapy

== ENCOUNTER → 2019-05-02 | Outpatient (CLI) | payer BC ==
--- NOTE | 2019-05-02 12:00 | PN ---
PROGRESS NOTE DATE OF SERVICE: 05/02/2019. A 48-year-old gentleman who has been followed in the [facility] for treatment of obstructive sleep apnea-hypopnea syndrome. Patient has severe sleep apnea. He continues to use his BiPAP equipment every night for the whole night. Sleeps well with the machine. Does not snore. [place] Sleepiness Scale today is 8, which is in normal range. I checked BiPAP unit, pressure is 12/8 cm of water. I checked usage for the whole year is 363 nights out of 365 nights and 353 nights out of 365 nights more than 4 hours with average usage 7.2 hours per night. Leak is 16 L/minute, which is borderline. Patient is using under the nose Dream Wear full-face mask. That amount of sleep is in acceptable range for that type of mask. Apnea-hypopnea index reading 5.5 for the whole year and 4.4 for the last months. MEDICATIONS: Amlodipine. PHYSICAL EXAM: Patient in no distress. BP 143/74, HR 74, RR 16, height 5, 11-1/2, weight 320.4 pounds, which is a 9 pounds more than on the previous visit. Temperature is 98.3. Oxygen saturation at room air 96%/ OROPHARYNX: Extremely low position of soft palate. Mallampati 4. ABDOMEN: Obese. NECK: Supple, no JVD. Thyroid is not palpable. LUNGS: Clear to percussion and to auscultation. Good air exchange. No wheezing or rhonchi. HEART: S1, S2 regular. No murmurs, gallops, or rubs. EXTREMITIES: No clubbing or cyanosis. BLINDSTITCH LINING FELLER: Awake, alert, and oriented X3. Cranial nerves 2 to 7 intact. There is no fasciculation or atrophy. noted. No focal deficits observed. IMPRESSION: 1. Obstructive sleep apnea-hypopnea syndrome. Patient demonstrated great compliance with treatment, benefitting from treatment. Apnea-hypopnea index in the range of 5. 2. Obesity, patient increased weight of 9 pounds comparing to the previous visit. Body mass index 44. 3. Hypertension. 4. History of episodes of atrial fibrillation. 5. Status post multiple ear surgery. 6. Status post left arm lipoma removed. 7. Status post umbilical hernia treatment. PLAN: 1. Patient will continue to use BiPAP equipment every night for the whole night. 2. I will increase pressure slightly up to 13/9 cm of water. 3. Prescription for all necessary CPAP supplies including mask, heated tube, filters. 4. Losing weight. 5. No driving if feeling sleepiness. 6. Followup visit in 1 year or earlier, if patient has any problems. Thank you very much for allowing me to participate in management of your patient. Sincerely, Sami Perez MD, PhD, FAASM Diplomat of [employer] Analyst [facility] [place] MMODL / IJN: [id number] /
== END | disposition home or self-care (01) ==
LOC: SLEEP 10:50
PROVIDERS: ATTEND Internal Medicine
DX: G47.33 Obstructive sleep apnea (adult) (pediatric) (principal); E66.9 Obesity, unspecified; Z68.41 Body mass index [BMI] 40.0-44.9, adult; I10 Essential (primary) hypertension; Z98.890 Other specified postprocedural states; Z86.79 Personal history of other diseases of the circulatory system; Z79.899 Other long term (current) drug therapy

== ENCOUNTER → 2020-01-21 | Outpatient (CLI) | payer BC ==
--- NOTE | 2020-01-22 07:13 | US ---
EXAMINATION TYPE: US scrotum with doppler. Grayscale and color Doppler Duplex imaging performed of t he scrotum. DATE OF EXAM: 01/21/2020 COMPARISON: NONE CLINICAL HISTORY: N50.812 Left Testicle Pain. Left testicular pain EXAM MEASUREMENTS: TESTICLES: Right Testicle: 5.1 x 2.3 x 3.4 cm Left Testicle: 4.7 x 2.3 x 3.1 cm EPIDIDYMIS HEAD: Right Epididymis: 0.8 x 1.2 x 1.3 cm Left Epididymis: 0.8 x 0.9 x 1.6 cm Doppler performed to assess for testicular vascularity; good bilateral color flow and waveforms are s een. There is no evidence of testicular torsion. Presence of hydroceles: right 2.4cm, left 4.8cm Presence of varicoceles: no IMPRESSION: 1. Bilateral hydroceles greater on the left.
== END | disposition home or self-care (01) ==
LOC: RADUSWWP 15:30
PROVIDERS: ATTEND Family Medicine
DX: N43.3 Hydrocele, unspecified (principal)
CPT/HCPCS: 76870; 93975

== ENCOUNTER → 2020-05-07 | Outpatient (CLI) | payer BC ==
--- NOTE | 2020-05-07 16:02 | XR ---
EXAMINATION TYPE: XR chest 2V DATE OF EXAM: 05/07/2020 COMPARISON: 07/08/2017 HISTORY: 49-year-old male R2 2.2, lump on chest TECHNIQUE: Frontal and lateral views FINDINGS: Heart normal size. Aorta and pulmonary vasculature within normal limits. Some central peribronchial c uffing is noted. No consolidation or pleural effusion. The patient's xiphoid process appears to proje ct anteroinferiorly on the lateral view. IMPRESSION: 1. Some peribronchial cuffing can be seen with bronchitis or asthma. No focal infiltrate. 2. On the lateral view, the patient's xiphoid process appears to project anteroinferiorly. Correlate as to if this corresponds to the patient's palpable site. Targeted ultrasound if clinically indicated .
== END | disposition home or self-care (01) ==
LOC: RADXRMAIN 11:49
PROVIDERS: ATTEND Family Medicine
DX: J40 Bronchitis, not specified as acute or chronic (principal)
CPT/HCPCS: 71046

== ENCOUNTER → 2020-12-16 | Outpatient (CLI) | payer BC ==
--- NOTE | 2020-12-16 20:39 | SFUN ---
SLEEP CENTER FOLLOW UP NOTE DATE OF SERVICE: 12/16/2020 This 50-year-old gentleman has been followed in Sleep Center for treatment of obstructive sleep apnea-hypopnea syndrome. I did not see this patient for about 1-1/2 years. The patient continues to use his BiPAP equipment every night. [place] Sleepiness Scale today is 6. I checked his BiPAP unit. Pressure is 13/9 cm of water. Usage is 29/30 nights and 24/30 nights for more than 4 hours, average 4.7 hours per night. Leak is 7 L/minute, which is in normal range. Apnea-hypopnea index increased to 10.1, and this includes apnea index 2.1. The patient lost weight, from 320 pounds down to 284 pounds. MEDICATIONS: 1. Metoprolol twice a day. 2. Januvia twice a day. 3. Amlodipine once a day. Patient does not know the dosage. PHYSICAL EXAMINATION: GENERAL: Pleasant patient in no distress. VITAL SIGNS: BP 147/77, HR 78, RR 15, height 5 feet 11 inches, weight 284, body mass index 39.6, temperature 98.5, oxygen saturation at room air 96%. HEENT: PERRLA, EOMI, evaluation of oropharynx showed tongue protrudes midline. Extremely low position of soft palate; Mallampati IV. NECK: Supple, no JVD. Thyroid is not palpable. LUNGS: Clear to percussion and to auscultation. Good air exchange. No wheezing or rhonchi. HEART: S1, S2 regular. No murmurs, gallops, or rubs. ABDOMEN: Obese. EXTREMITIES: No clubbing or cyanosis. CHANNEL MARKETING SPECIALIST: Awake, alert, and oriented X3. Cranial nerves 2 to 7 intact. There is no fasciculation or atrophy. noted. No focal deficits observed. IMPRESSION: 1. Obstructive sleep apnea-hypopnea syndrome. Patient demonstrated good compliance with treatment, benefitting from treatment, but apnea-hypopnea index increased compared with the previous visit to 10.1. 2. Obesity. Patient lost about 40 pounds. 3. Hypertension. 4. History of episodes of atrial fibrillation. No recent episodes. 5. Status post multiple ear surgeries. 6. Status post left arm lipoma removed. 7. Status post umbilical hernia treatment. PLAN: 1. I changed regimen of the machine to automatic with maximal inspiratory pressure 17 and minimal expiratory pressure 7. Pressure support 4. 2. Patient will continue to use PAP equipment every night for the whole night. 3. Sleep hygiene with regular time in bed for at least 7-1/2 to 8 hours. 4. Precautions related to driving. No driving if feeling sleepiness. 4. I will maintain all necessary prescription for PAP supplies including mask, tube, filters. 5. Watching weight. 6. Follow-up visit in 4 months or earlier if patient has any problems. Thank you very much for allowing me to participate in the management of your patient. Sincerely, Sami Perez MD, PhD, FAASM Diplomat of [place] [employer] Sleep Medicine Board of [place] [employer] [place] [employer] G[employer]er [facility] [place] MMLUISITOL / RICKIEN: [id number] /
== END | disposition home or self-care (01) ==
LOC: SLEEP 15:47
PROVIDERS: ATTEND Internal Medicine
DX: G47.33 Obstructive sleep apnea (adult) (pediatric) (principal); E66.9 Obesity, unspecified; I10 Essential (primary) hypertension; Z86.79 Personal history of other diseases of the circulatory system; Z98.890 Other specified postprocedural states

== ENCOUNTER 2021-03-09 11:04 | Observation (INO) | payer BC ==
[2021-03-09] MEDS ORDERED: ASPIRIN 81 MG PO STA (11:19)
[2021-03-09] MEDS ORDERED: DILTIAZEM 5 MG/ML 5 ML VIAL IVP STA (11:35)
[2021-03-09] MEDS: DILTIAZEM 125 MG in SODIUM CHLORIDE 0.9% 100 ML IV SCH ×2 (11:46→11:57)
--- NOTE | 2021-03-09 11:49 | ED ---
General Adult HPI - General Chief complaint: Arrhythmia/Palpitations Stated complaint: AFIB Time Seen by Provider: 03/09/21 11:18 Source: patient, RN notes reviewed, old records reviewed Mode of arrival: ambulatory Limitations: no limitations - History of Present Illness Initial comments: Patient is a 50-year-old male with past medical history remarkable for atrial fibrillation who no longer takes anticoagulation presents to the emergency Department after care home episode. Patient believes it may be his atrial fibrillation. Patient states he was driving when he expressed an episode near- syncopal episode when he had lightheadedness, and some palpitations. States he began having tunnel vision. He can the emergency department for further ev aluation. Patient states that he felt like he was his atrial fibrillation. He denies any chest pain, shortness breath, fevers, cough. Denies any abdominal complaints or other complaint at this time. States he no longer takes anticoagulation. He presents over concern for his near syncopal episode and possible A. fib. - Related Data Home Medications Medication Instructions Recorded Confirmed amLODIPine BESYLATE/BENAZEPRIL 1 cap PO DAILY 03/09/21 03/09/21 [amLODIPine BESYLATE/BENAZEPRIL 5-10 MG] sitaGLIPtin PHOS/metFORMIN HCL 1 tab PO AC-BID 03/09/21 03/09/21 [Janumet Xr 50-1,000 mg Tablet] Previous Rx's Medication Instructions Recorded Metoprolol Tartrate [Lopressor] 25 mg PO BID #60 tab 07/10/17 Rivaroxaban [Xarelto] 20 mg PO DAILY 30 Days #30 tab 03/09/21 Allergies Allergy/AdvReac Type Severity Reaction Status Date / Time No Known Allergies Allergy Verified 03/09/21 11:15 Review of Systems ROS Statement: Those systems with pertinent positive or pertinent negative responses have been documented in the HPI. Review of Systems: CONST: Denies fever EYES: Denies blurry vision ENT: Denies nasal congestion C/V: Endorse's palpitations RESP: Denies shortness of breath GI: Denies abdominal pain : Denies dysuria SKIN: Denies rash. MSK: Denies joint pain. NEURO: Denies headache ROS Other: All systems not noted in ROS Statement are negative. Past Medical History Past Medical History: Atrial Fibrillation Additional Past Medical History / Comment(s): hx gout, History of Any Multi-Drug Resistant Organisms: None Reported Past Surgical History: Adenoidectomy, Ear Surgery, Hernia Repair, Orthopedic Surgery, Tonsillectomy Additional Past Surgical History / Comment(s): left knee arthroscopy, mult ear surgeries-abiola, lipoma removal Past Anesthesia/Blood Transfusion Reactions: Motion Sickness Past Psychological History: No Psychological Hx Reported Past Alcohol Use History: Rare - Past Family History Mother Family Medical History: Cancer, Diabetes Mellitus Additional Family Medical History / Comment(s): BREAST CANCER Father Family Medical History: Diabetes Mellitus General Exam - General Exam Comments Initial Comments: General: Appears in no acute distress. HEAD: Normal with no signs of head trauma. EYES: PERRLA, EOMI, conjunctiva normal, no discharge. ENT: Hearing grossly intact, normal oropharynx. RESPIRATORY: Clear breath sounds bilaterally. No wheezes, rales, or rhonchi. C/V: Irregular rate and rhythm. S1 and S2 auscultated. No peripheral edema. Peripheral pulses are 2+ and intact throughout. ABD: Abd is soft, nontender, nondistended EXT: Normal range of motion, no obvious deformity SKIN: No rashes or lesions observed on exposed skin. NEURO: Alert and oriented x 4. Cranial nerves II-XII intact. No focal sensory or strength deficits. Limitations: no limitations Course Vital Signs 03/09/21 03/09/21 03/09/21 11:12 12:27 12:32 Temperature 98.9 F Pulse Rate 68 118 H 100 Respiratory 122 H 20 20 Rate Blood Pressure 112/76 111/76 O2 Sat by Pulse 98 96 98 Oximetry 03/09/21 13:14 Temperature Pulse Rate 63 Respiratory 20 Rate Blood Pressure O2 Sat by Pulse 98 Oximetry Medical Decision Making - Medical Decision Making Based on the patient's presentation and physical exam, I'm concerned for his atrial fibrillation as well as cardiac etiology for his near syncopal episode. EKG shows A. fib with RVR. Cardiac labs will be obtained. He does have a known history of paroxysmal A. fib. He'll be started on heparin, and will be administered IV push Cardizem as well as a drip. Patient was in agreement this plan. He will be given an aspirin. He will be connected to continuous cardiac monitoring. EKG initially showed atrial fibrillation with RVR, however he later converted to normal sinus rhythm after Cardizem administration. Laboratory studies are relatively unremarkable except for slightly elevated LFTs of 63 and 66 for AST and ALT respectively. Covid swab was negative. Troponin is negative. Remainder of laboratory studies are unremarkable. Chest x-ray reveals no acute cardio pulmonary process. I spoke with cardiology in the emergency department and agreed to assess patient. They were in agreement with the plan. Dr. Buckley is consulted. At this time I would like to admit the patient and he was in agreement this plan. I spoke with the admitting team under Dr. dominguez who accepted the patient. Patient was admitted and serous condition to telemetry bed. - Lab Data Result diagrams: 03/09/21 11:37 03/09/21 11:37 Lab Results 03/09/21 03/09/21 03/09/21 Range/Units 11:37 11:37 11:37 WBC 9.1 (3.8-10.6) k/uL RBC 5.73 (4.30-5.90) m/uL Hgb 17.6 H (13.0-17.5) gm/dL Hct 52.7 (39.0-53.0) % MCV 92.1 (80.0-100.0) fL MCH 30.7 (25.0-35.0) pg MCHC 33.3 (31.0-37.0) g/dL RDW 13.7 (11.5-15.5) % Plt Count 196 (150-450) k/uL MPV 8.2 Neutrophils % 74 % Lymphocytes % 19 % Monocytes % 4 % Eosinophils % 2 % Basophils % 0 % Neutrophils # 6.7 (1.3-7.7) k/uL Lymphocytes # 1.7 (1.0-4.8) k/uL Monocytes # 0.3 (0-1.0) k/uL Eosinophils # 0.1 (0-0.7) k/uL Basophils # 0.0 (0-0.2) k/uL PT 10.3 (9.0-12.0) sec INR 1.0 (<1.2) APTT 23.7 (22.0-30.0) sec Sodium 139 (137-145) mmol/L Potassium 5.0 (3.5-5.1) mmol/L Chloride 106 (98-107) mmol/L Carbon Dioxide 22 (22-30) mmol/L Anion Gap 11 mmol/L BUN 18 (9-20) mg/dL Creatinine 0.97 (0.66-1.25) mg/dL Est GFR (CKD-EPI)AfAm >90 (>60 ml/min/1.73 sqM) Est GFR (CKD-EPI)NonAf >90 (>60 ml/min/1.73 sqM) Glucose 147 H (74-99) mg/dL Calcium 9.8 (8.4-10.2) mg/dL Magnesium 2.0 (1.6-2.3) mg/dL Total Bilirubin 1.2 (0.2-1.3) mg/dL AST 63 H (17-59) U/L ALT 66 H (4-49) U/L Alkaline Phosphatase 74 (38-126) U/L Troponin I (0.000-0.034) ng/mL Total Protein 8.0 (6.3-8.2) g/dL Albumin 4.6 (3.5-5.0) g/dL TSH (0.465-4.680) mIU/L 03/09/21 03/09/21 Range/Units 11:37 11:37 WBC (3.8-10.6) k/uL RBC (4.30-5.90) m/uL Hgb (13.0-17.5) gm/dL Hct (39.0-53.0) % MCV (80.0-100.0) fL MCH (25.0-35.0) pg MCHC (31.0-37.0) g/dL RDW (11.5-15.5) % Plt Count (150-450) k/uL MPV Neutrophils % % Lymphocytes % % Monocytes % % Eosinophils % % Basophils % % Neutrophils # (1.3-7.7) k/uL Lymphocytes # (1.0-4.8) k/uL Monocytes # (0-1.0) k/uL Eosinophils # (0-0.7) k/uL Basophils # (0-0.2) k/uL PT (9.0-12.0) sec INR (<1.2) APTT (22.0-30.0) sec Sodium (137-145) mmol/L Potassium (3.5-5.1) mmol/L Chloride (98-107) mmol/L Carbon Dioxide (22-30) mmol/L Anion Gap mmol/L BUN (9-20) mg/dL Creatinine (0.66-1.25) mg/dL Est GFR (CKD-EPI)AfAm (>60 ml/min/1.73 sqM) Est GFR (CKD-EPI)NonAf (>60 ml/min/1.73 sqM) Glucose (74-99) mg/dL Calcium (8.4-10.2) mg/dL Magnesium (1.6-2.3) mg/dL Total Bilirubin (0.2-1.3) mg/dL AST (17-59) U/L ALT (4-49) U/L Alkaline Phosphatase (38-126) U/L Troponin I <0.012 (0.000-0.034) ng/mL Total Protein (6.3-8.2) g/dL Albumin (3.5-5.0) g/dL TSH 2.600 (0.465-4.680) mIU/L - EKG Data -: EKG Interpreted by Me EKG Comments: 12-lead Electrocardiogram Interpretation Note EKG was reviewed and interpreted by myself. 12-lead ECG performed at 1121 is interpreted by me as revealing atrial fibrillation with RVR at a rate of 159 beats per minute. [place] is normal. MN interval is unobtainable, QRS duration is 90 ms, QTc is 421 ms.. There were no ST or T wave abnormalities to suggest myocardial ischemia or injury. R wave progression across the precordium was satisfactory. By my interpretation this EKG is non-diagnostic for acute ischemia. Following conversion to sinus rhythm after Cardizem drip: 12-lead Electrocardiogram Interpretation Note EKG was reviewed and interpreted by myself. 12-lead ECG performed at 1434 is interpreted by me as revealing normal sinus rhythm at a rate of 60 beats per minute. [place] is normal. MN Intervals 172 ms, QRS duration is 102 ms, QTc is 390 ms.. There is isolated T-wave inversion in lead III. No other signs of acute ischemia.. R wave progression across the precordium was satisfactory. By my interpretation this EKG is non-diagnostic for acute ischemia. Critical Care Time Critical Care Time: Yes Total Critical Care Time: 35 Critical Care Time: Upon my evaluation, this patient had a high probability of imminent or life- threatening deterioration due to atrial fibrillation with RVR, which required my direct attention, intervention, and personal management. I have personally provided 30 minutes of critical care time exclusive of time spent on separately billable procedures. Time includes review of laboratory jennifer a, radiology results, discussion with consultants, and monitoring for potential decompensation. Interventions were performed as documented in my note. Disposition Clinical Impression: Atrial fibrillation with RVR, Near syncope Disposition: ADMITTED IP TO THIS HOSP Condition: Serious
[2021-03-09 11:52] LABS: Basophils % (A) 0 %; Eosinophils # (A) 0.1 k/uL (0-0.7); Eosinophils % (A) 2 %; HCT 52.7 % (39.0-53.0); HGB 17.6 gm/dL (13.0-17.5); Lymphocytes # (A) 1.7 k/uL (1.0-4.8); Lymphocytes % (A) 19 %; MCH 30.7 pg (25.0-35.0); MCHC 33.3 g/dL (31.0-37.0); MCV 92.1 fL (80.0-100.0); Mean Platelet Volume 8.2; Monocytes # (A) 0.3 k/uL (0-1.0); Monocytes % (A) 4 %; Neutrophils # (A) 6.7 k/uL (1.3-7.7); Neutrophils % (A) 74 %; Platelet Count 196 k/uL (150-450); RBC 5.73 m/uL (4.30-5.90); RDW 13.7 % (11.5-15.5); WBC 9.1 k/uL (3.8-10.6)
[2021-03-09] MEDS ORDERED: HEPARIN SODIUM 1,000 UN/ML (10ML VL) IV ONE (11:52)
[2021-03-09] MEDS ORDERED: HEPARIN SODIUM 1,000 UN/ML (10ML VL) IV PRN (11:52)
[2021-03-09 12:03] LABS: ALT 66 U/L (4-49); African American GFR (CKD) >90 (>60 ml/min/1.73 sqM); Anion Gap 11 mmol/L; Blood Urea Nitrogen 18 mg/dL (9-20); Calcium 9.8 mg/dL (8.4-10.2); Carbon Dioxide 22 mmol/L (22-30); Chloride 106 mmol/L (98-107); Glucose 147 mg/dL (74-99); Non-African American GFR(CKD) >90 (>60 ml/min/1.73 sqM); Sodium 139 mmol/L (137-145); Total Bilirubin 1.2 mg/dL (0.2-1.3)
[2021-03-09 12:05] LABS: AST 63 U/L (17-59); Albumin 4.6 g/dL (3.5-5.0); Alkaline Phosphatase 74 U/L (38-126)
[2021-03-09 12:06] LABS: Partial Thromboplastin Time 23.7 sec (22.0-30.0); Prothrombin Time 10.3 sec (9.0-12.0)
[2021-03-09] MEDS: HEPARIN SOD,PORK IN 0.45% NACL 25,000 UNIT in 0.45% NACL 1 250ML.BAG IV SCH (12:21)
[2021-03-09] MEDS ORDERED: NALOXONE 0.4 MG/ML 1 ML VIAL IV PRN ×2 (12:27→13:53)
--- NOTE | 2021-03-09 12:51 | P.CRDCN ---
History of Present Illness History of present illness: HISTORY OF PRESENTING ILLNESS This is a pleasant 50-year-old male past medical history significant for paroxysmal atrial fibrillation, was on Xarelto in 2018,not on it currently, Type 2 Diabetes, hypertension, dyslipidemia, obstructive sleep apnea wears a BIPAP. He used to follow in the office with Dr. Cuevas on the last seen in 2018. We have been asked to see in consultation for atrial fibrillation with rapid ventricular response. Patient presents emergency department with complaints of palpitations. He states he woke up and felt his heart racing and it did no resolve. In the car, his palpitations continued, he felt lightheaded, had neck pain bilaterally and bilateral shoulder blade pain, he also felt diaphoretic. He brought himself to the emergency department for further evaluation. He denies any history of CAD, NE, Stroke. He denies family history of CAD. He denies smoking, alcohol or illicit drug use. He states that he has not had an issue with his A fib for 3 years. He is not vaccinated against covid-19. He denies any fever, chills, diarrhea, cough or shortness of breath. He denies symptoms of orthopnea or PND. Patient given 10mg IV Cardizem and started on IV Cardizem drip DIAGNOSTICS EKG reveals atrial fibrillation with rapid ventricular response, heart rate 158. Prior EKG in 2018 patient was in sinus mechanism. Telemetry tracings indicate atrial fibrillation left ventricular response heart rate in the 160s-170s Most recent echocardiogram 08/2017 revealed an EF of 55%, mild mitral regurgitation, moderate tricuspid regurgitation Most recent stress test, stress echo in 2018 revealed no evidence of stress- induced ischemia Laboratory reviewed, WBC 10.1, hemoglobin 17, platelets 196, sodium 139, potassium 5.0, BUN 18, serum creatinine 0.9, magnesium 2.0, AST 63, ALT 66, troponin negative 1 Current home medications include metoprolol titrate 25 mg twice a day, atorvastatin 40 mg nightly, amlodipine/benazepril 1020 mg daily REVIEW OF SYSTEMS CONSTITUTIONAL: Denies fever or chills. CARDIOVASCULAR: +palpitations Denies chest pain, shortness of breath, orthopnea, PND RESPIRATORY: Denies cough. GASTROINTESTINAL: Denies abdominal pain, diarrhea, constipation, nausea or vomiting. MUSCULOSKELETAL: Denies myalgias. NEUROLOGIC: Denies numbness, tingling, headacbe or weakness. ENDOCRINE: Denies fatigue, weight change, polydipsia or polyurina. GENITOURINARY: Denies burning, hematuria or urgency with micturation. HEMATOLOGIC: Denies history of anemia or bleeding. PHYSICAL EXAMINATION Vitals 111/76, heart rate 118, afebrile, oxygen saturations greater than 92% on room air CONSTITUTIONAL: No apparent distress. HEENT: Head is normocephalic. Pupils are equal, round. Sclerae anicteric. Mucous membranes of the mouth are moist. No JVD. No carotid bruit. CHEST EXAMINATION: Lungs are clear to auscultation. No chest wall tenderness is noted on palpation or with deep breathing. HEART EXAMINATION: Irregular tachycardic rate and rhythm. S1, S2 heard. No murmurs, gallops or rub. ABDOMEN: Soft, nontender. Positive bowel sounds. EXTREMITIES: 2+ peripheral pulses, no lower extremity edema and no calf tenderness. SKIN: warm, dry NEUROLOGIC EXAMINATION: Patient is awake, alert and oriented x3. ASSESSMENT Paroxysmal atrial fibrillation with RVR -[id number]-CADm score 2 History of hypertension Type 2 Diabetes History of obstructive sleep apnea History of dyslipidemia PLAN -Continue IV Cardizem drip -Start IV Heparin -Patient was on Xarelto 20mg daily in 2018, will check coverage with case management -Continue metoprolol tartrate and Statin -Continue cardiac telemetry -Obtain 2D echocardiogram -Further recommendations based on clinical course Nurse Practitioner note has been reviewed, I agree with a documented findings and plan of care. Patient was seen and examined. Past Medical History Past Medical History: Atrial Fibrillation Additional Past Medical History / Comment(s): hx gout, History of Any Multi-Drug Resistant Organisms: None Reported Past Surgical History: Adenoidectomy, Ear Surgery, Hernia Repair, Orthopedic Surgery, Tonsillectomy Additional Past Surgical History / Comment(s): left knee arthroscopy, mult ear surgeries-abiola, lipoma removal Past Anesthesia/Blood Transfusion Reactions: Motion Sickness Past Psychological History: No Psychological Hx Reported Past Alcohol Use History: Rare - Past Family History Mother Family Medical History: Cancer, Diabetes Mellitus Additional Family Medical History / Comment(s): BREAST CANCER Father Family Medical History: Diabetes Mellitus Medications and Allergies Home Medications Medication Instructions Recorded Confirmed Type amLODIPine BESYLATE/BENAZEPRIL 1 cap PO DAILY 09/07/15 06/11/20 History [Amlodipine-Benazepril 10-20 mg] Metoprolol Tartrate [Lopressor] 25 mg PO BID #60 tab 07/10/17 06/11/20 Rx sitaGLIPtin PHOS/metFORMIN HCL 1 each PO AC-BID #60 tbmp.24hr 07/11/17 06/11/20 Rx [Janumet Xr 50-1,000 mg Tablet] Atorvastatin [Lipitor] 40 mg PO HS 06/11/20 06/11/20 History Ergocalciferol [Vitamin D2 50,000 unit PO WE 06/11/20 06/11/20 History (DRISDOL)] Rivaroxaban [Xarelto] 20 mg PO DAILY 30 Days #30 tab 03/09/21 Rx Allergies Allergy/AdvReac Type Severity Reaction Status Date / Time No Known Allergies Allergy Verified 03/09/21 11:15 Physical Exam Vitals: Vital Signs Temp Pulse Resp BP Pulse Ox 03/09/21 12:32 100 20 98 03/09/21 12:27 118 H 20 111/76 96 03/09/21 11:12 98.9 F 68 122 H 112/76 98 Intake and Output 03/08/21 03/09/21 03/09/21 22:59 06:59 14:59 Other: Weight 145.15 kg Results 03/09/21 11:37 03/09/21 11:37 Cardiac Enzymes 03/09/21 03/09/21 Range/Units 11:37 11:37 AST 63 H (17-59) U/L Troponin I <0.012 (0.000-0.034) ng/mL Coagulation 03/09/21 Range/Units 11:37 PT 10.3 (9.0-12.0) sec APTT 23.7 (22.0-30.0) sec CBC 03/09/21 Range/Units 11:37 WBC 9.1 (3.8-10.6) k/uL RBC 5.73 (4.30-5.90) m/uL Hgb 17.6 H (13.0-17.5) gm/dL Hct 52.7 (39.0-53.0) % Plt Count 196 (150-450) k/uL Comprehensive Metabolic Panel 03/09/21 Range/Units 11:37 Sodium 139 (137-145) mmol/L Potassium 5.0 (3.5-5.1) mmol/L Chloride 106 (98-107) mmol/L Carbon Dioxide 22 (22-30) mmol/L BUN 18 (9-20) mg/dL Creatinine 0.97 (0.66-1.25) mg/dL Glucose 147 H (74-99) mg/dL Calcium 9.8 (8.4-10.2) mg/dL AST 63 H (17-59) U/L ALT 66 H (4-49) U/L Alkaline Phosphatase 74 (38-126) U/L Total Protein 8.0 (6.3-8.2) g/dL Albumin 4.6 (3.5-5.0) g/dL Current Medications Generic Name Dose Route Start Last Admin Trade Name Freq PRN Reason Stop Dose Admin Atorvastatin Calcium 40 mg 03/09/21 21:00 Atorvastatin 40 Mg Tab PO HS HAYLEY Heparin Sodium (Porcine) 0 unit 03/09/21 11:52 Heparin Sodium 1,000 Un/Ml (10ml Vl) IV PER PROTOCOL PRN Low PTT Protocol Diltiazem HCl 125 mg/ Sodium 125 mls @ 0 mls/hr 03/09/21 12:00 03/09/21 11:57 Chloride IV 5 mg/hr .Q0M HAYLEY 5 mls/hr Administration Protocol Per Protocol Heparin Sodium/Sodium Chloride 250 mls @ 10 mls/hr 03/09/21 12:00 03/09/21 12:21 25,000 unit/ Sodium Chloride IV 6.8894 units/kg/hr .Q24H HAYLEY 10 mls/hr Administration Protocol 6.8894 UNITS/KG/HR Metoprolol Tartrate 25 mg 03/09/21 12:45 Metoprolol Tartrate 25 Mg Tab PO BID HAYLEY Naloxone HCl 0.2 mg 03/09/21 12:27 Naloxone 0.4 Mg/Ml 1 Ml Vial IV Q2M PRN Opioid Reversal Intake and Output 03/08/21 03/09/21 03/09/21 22:59 06:59 14:59 Other: Weight 145.15 kg Patient Weight 03/10/21 06:59 Weight 145.15 kg 03/09/21 11:37 03/09/21 11:37
--- NOTE | 2021-03-09 13:54 | P.HPIM ---
History of Present Illness H&P Date: 03/09/21 Chief Complaint: palpitations 50-year-old male past medical history significant for paroxysmal atrial fibrillation, type 2 Diabetes, hypertension, dyslipidemia, obstructive sleep apnea wears a BIPAP who presented to the emergency department with complaints of palpitations. He states he woke up and felt his heart racing and it did no resolve. In the car, his palpitations continued, he felt lightheaded, had neck pain bilaterally and bilateral shoulder blade pain, also felt diaphoretic. Patient stated that initially when he was diagnosed with A. fib 3 years ago he was overweight, he lost significant amount of weight and did not have issues with atrial fibrillation until now. No fever, chills, diarrhea, cough or shortness of breath. He denies symptoms of orthopnea or PND. In the emergency department he was found to have atrial fibrillation with rapid ventricular response, was started on heparin as well as Cardizem drips. Laboratory workup was essentially negative. He was admitted for further evaluation and management. Review of Systems Complete review of system performed, pertinent positives per HPI, otherwise negative Past Medical History Past Medical History: Atrial Fibrillation Additional Past Medical History / Comment(s): hx gout, History of Any Multi-Drug Resistant Organisms: None Reported Past Surgical History: Adenoidectomy, Ear Surgery, Hernia Repair, Orthopedic Surgery, Tonsillectomy Additional Past Surgical History / Comment(s): left knee arthroscopy, mult ear surgeries-abiola, lipoma removal Past Anesthesia/Blood Transfusion Reactions: Motion Sickness Past Psychological History: No Psychological Hx Reported Past Alcohol Use History: Rare - Past Family History Mother Family Medical History: Cancer, Diabetes Mellitus Additional Family Medical History / Comment(s): BREAST CANCER Father Family Medical History: Diabetes Mellitus Medications and Allergies Home Medications Medication Instructions Recorded Confirmed Type Metoprolol Tartrate [Lopressor] 25 mg PO BID #60 tab 07/10/17 03/09/21 Rx Rivaroxaban [Xarelto] 20 mg PO DAILY 30 Days #30 tab 03/09/21 Rx amLODIPine BESYLATE/BENAZEPRIL 1 cap PO DAILY 03/09/21 03/09/21 History [amLODIPine BESYLATE/BENAZEPRIL 5-10 MG] sitaGLIPtin PHOS/metFORMIN HCL 1 tab PO AC-BID 03/09/21 03/09/21 History [Janumet Xr 50-1,000 mg Tablet] Allergies Allergy/AdvReac Type Severity Reaction Status Date / Time No Known Allergies Allergy Verified 03/09/21 11:15 Physical Exam Vitals: Vital Signs Temp Pulse Resp BP Pulse Ox 03/09/21 13:14 63 20 98 03/09/21 12:32 100 20 98 03/09/21 12:27 118 H 20 111/76 96 03/09/21 11:12 98.9 F 68 122 H 112/76 98 Intake and Output 03/08/21 03/09/21 03/09/21 22:59 06:59 14:59 Intake Total 4.25 Balance 4.25 Intake: Intake, IV Titration 4.25 Amount Diltiazem 125 mg In 4.25 Sodium Chloride 0.9% 100 ml @ Per Protocol IV .Q0M [facility] Rx#:[id number] Other: Weight 145.15 kg Constitutional: No acute distress, conversant, pleasant Eyes:Anicteric sclerae, moist conjunctiva, no lid-lag, PERRLA, ENMT: Oropharynx clear, no erythema, exudates Neck: Supple, FROM, no masses, or JVD, No carotid bruits, No thyromegaly Lungs: Clear to auscultation, Clear to percussion, Normal respiratory effort, no accessory muscle use Cardiovascular: Heart regular in rate and rhythm, No murmurs, gallops, or rubs, No peripheral edema Abdominal: Soft, Nontender, no guarding, rebound or rigidity, Normoactive bowel sounds, No hepatomegaly, No splenomegaly, No palpable mass Skin: Normal temperature, tone, texture, turgor, no induration, No subcutaneous nodules, No rash, lesions, No ulcers Extremities: No digital cyanosis, No clubbing, Pedal pulses intact and symmetrical, Radial pulses intact and symmetrical, No calf tenderness Psychiatric: Alert and oriented to person, place and time, appropriate affect, intact judgement Neuro: Muscles Strength 5/5 in all 4 extremities, Sensation to light touch grossly present throughout, Cranial nerves II-XII grossly intact, no focal sensory deficits Results CBC & Chem 7: 03/09/21 11:37 03/09/21 11:37 Labs: Abnormal Lab Results - Last 24 Hours (Table) 03/09/21 03/09/21 Range/Units 11:37 11:37 Hgb 17.6 H (13.0-17.5) gm/dL Glucose 147 H (74-99) mg/dL AST 63 H (17-59) U/L ALT 66 H (4-49) U/L Assessment and Plan Plan: Paroxysmal atrial fibrillation Patient is currently in sinus rhythm He was seen by cardiology Continue heparin drip for now Restart metoprolol Echo Diabetes type 2 Continue home meds Sliding scale insulin with blood sugar checks every before meals and at bedtime Essential hypertension Continue Norvasc Admitted to observation Expected length of stay less than 2 midnights Disposition: Home Anticipated discharge: in am
--- NOTE | 2021-03-09 14:52 | XR ---
EXAMINATION TYPE: XR chest 2V DATE OF EXAM: 03/09/2021 COMPARISON: Chest x-ray 05/07/2020 HISTORY: Dysrhythmia TECHNIQUE: Frontal and lateral views of the chest are obtained. FINDINGS: There is no focal air space opacity, pleural effusion, or pneumothorax seen. The cardiac silhouette size is within normal limits. The osseous structures are intact. There are overlying madeline ds. IMPRESSION: No acute cardiopulmonary process.
[2021-03-09 16:45] LABS: Glucose,Whole Blood 152 mg/dL (75-99)
[2021-03-09] MEDS: lisinopriL 10 MG TAB PO SCH (16:47)
[2021-03-09] MEDS: METOPROLOL TARTRATE 25 MG TAB PO SCH ×2 (16:47→19:49)
[2021-03-09] MEDS: INSULIN ASPART (NovoLOG) 100 UNIT/ML VIAL SQ SCH ×2 (16:48→20:44)
[2021-03-09] MEDS: amLODIPine 5 MG TAB PO SCH (16:49)
[2021-03-09] MEDS: metFORMIN 500 MG TAB PO SCH (16:50)
[2021-03-09] MEDS: LINAGLIPTIN 5 MG TABLET PO SCH (16:50)
[2021-03-09 20:30] LABS: Glucose,Whole Blood 109 mg/dL (75-99)
[2021-03-09] MEDS ORDERED: ATORVASTATIN 40 MG TAB PO SCH (21:00)
[2021-03-10 06:35] LABS: Glucose,Whole Blood 126 mg/dL (75-99)
[2021-03-10] MEDS: INSULIN ASPART (NovoLOG) 100 UNIT/ML VIAL SQ SCH ×2 (06:40→12:17)
[2021-03-10] MEDS: metFORMIN 500 MG TAB PO SCH (06:40)
[2021-03-10] MEDS: LINAGLIPTIN 5 MG TABLET PO SCH (06:40)
[2021-03-10] MEDS: HEPARIN SOD,PORK IN 0.45% NACL 25,000 UNIT in 0.45% NACL 1 250ML.BAG IV SCH (07:02)
[2021-03-10 07:50] VITALS: RESP 20
[2021-03-10 08:27] LABS: Prothrombin Time 10.3 sec (9.0-12.0)
[2021-03-10] MEDS: METOPROLOL TARTRATE 25 MG TAB PO SCH (08:27)
[2021-03-10] MEDS: amLODIPine 5 MG TAB PO SCH (08:27)
[2021-03-10] MEDS: lisinopriL 10 MG TAB PO SCH (08:27)
--- NOTE | 2021-03-10 08:45 | ECHOF ---
Referral Reason:a fib MEASUREMENTS -------- HEIGHT: 180.3 cm WEIGHT: 145.1 kg BP: 111/76 RVIDd: 3.9 cm (< 3.3) IVSd: 1.5 cm (0.6 - 1.1) LVIDd: 4.2 cm (3.9 - 5.3) LVPWd: 1.5 cm (0.6 - 1.1) IVSs: 2.0 cm LVIDs: 3.2 cm LVPWs: 2.2 cm LAESV Index (A-L): 32.87 ml/m Ao Diam: 3.3 cm (2.0 - 3.7) AV Cusp: 1.9 cm (1.5 - 2.6) MV EXCURSION: 23.063 mm (> 18.000) MV EF SLOPE: 131 mm/s (70 - 150) EPSS: 1.3 cm MV E Logan: 0.59 m/s MV DecT: 179 ms MV A Logan: 0.84 m/s MV E/A Ratio: 0.70 RAP: 5.00 mmHg RVSP: 18.56 mmHg FINDINGS -------- Sinus rhythm. This was a technically adequate study. The left ventricular size is normal. There is moderate concentric left ventricular hypertrophy. O verall left ventricular systolic function is mildly impaired with, an EF between 45 - 50 %. The right ventricle is mild to moderately enlarged. LA is midly dilated 29-33ml/m2. The right atrial size is normal. Interatrial and interventricular septum intact. The aortic valve is trileaflet and appears structurally normal. There is no evidence of aortic regu rgitation. There is no evidence of aortic stenosis. Mild mitral regurgitation is present. Mild tricuspid regurgitation present. There is no evidence of pulmonary hypertension. The right v entricular systolic pressure, as measured by Doppler, is 18.56mmHg. There is no pulmonic regurgitation present. The aortic root size is normal. IVC Not well visulized. There is no pericardial effusion. CONCLUSIONS -------- 1. The left ventricular size is normal. 2. There is moderate concentric left ventricular hypertrophy. 3. Overall left ventricular systolic function is mildly impaired with, an EF between 45 - 50 %. 4. The right ventricle is mild to moderately enlarged. 5. LA is midly dilated 29-33ml/m2. 6. Mild mitral regurgitation is present. 7. Mild tricuspid regurgitation present. [employer]: Anju Lin RDCS
[2021-03-10 08:50] LABS: African American GFR (CKD) >90 (>60 ml/min/1.73 sqM); Anion Gap 8 mmol/L; Blood Urea Nitrogen 20 mg/dL (9-20); Calcium 9.1 mg/dL (8.4-10.2); Carbon Dioxide 26 mmol/L (22-30); Chloride 104 mmol/L (98-107); Glucose 117 mg/dL (74-99); Non-African American GFR(CKD) 82 (>60 ml/min/1.73 sqM); Potassium 3.9 mmol/L (3.5-5.1); Sodium 138 mmol/L (137-145)
[2021-03-10] MEDS ORDERED: RIVAROXABAN 20 MG TAB PO SCH (09:00)
[2021-03-10 09:16] LABS: Basophils % (A) 1 %; Eosinophils # (A) 0.1 k/uL (0-0.7); Eosinophils % (A) 1 %; HCT 45.4 % (39.0-53.0); HGB 15.8 gm/dL (13.0-17.5); Lymphocytes # (A) 2.1 k/uL (1.0-4.8); Lymphocytes % (A) 28 %; MCH 32.3 pg (25.0-35.0); MCHC 34.8 g/dL (31.0-37.0); MCV 92.7 fL (80.0-100.0); Mean Platelet Volume 8.5; Monocytes # (A) 0.3 k/uL (0-1.0); Monocytes % (A) 4 %; Neutrophils # (A) 4.9 k/uL (1.3-7.7); Neutrophils % (A) 64 %; Platelet Count 167 k/uL (150-450); RBC 4.89 m/uL (4.30-5.90); RDW 13.8 % (11.5-15.5); WBC 7.6 k/uL (3.8-10.6)
[2021-03-10 11:05] VITALS: BP 143/85; PULSE 72; TEMP 98
[2021-03-10 11:35] LABS: Glucose,Whole Blood 140 mg/dL (75-99)
--- NOTE | 2021-03-10 12:20 | P.DS ---
Providers Date of admission: 03/09/21 12:27 Expected date of discharge: 03/10/21 Attending physician: Sydnie Brenner DO Consults: 03/09/21 12:08 Consult Physician Routine Consulting Provider: [facility] Consult Reason/Comments: afib with rvr Do you want consulting provider notified?: Already Contacted Primary care physician: [facility] Course: 50-year-old male past medical history significant for paroxysmal atrial fibrillation, type 2 Diabetes, hypertension, dyslipidemia, obstructive sleep apnea wears a BIPAP who presented to the emergency department with complaints of palpitations. He states he woke up and felt his heart racing and it did no resolve. In the car, his palpitations continued, he felt lightheaded, had neck pain bilaterally and bilateral shoulder blade pain, also felt diaphoretic. Patient stated that initially when he was diagnosed with A. fib 3 years ago he was overweight, he lost significant amount of weight and did not have issues with atrial fibrillation until now. No fever, chills, diarrhea, cough or shortness of breath. He denies symptoms of orthopnea or PND. In the emergency department he was found to have atrial fibrillation with rapid ventricular response, was started on heparin as well as Cardizem drips. Laboratory workup was essentially negative. He was admitted for further evaluation and management. Soon after he was on cardizem gtt, he converted to SR. He was switched to by mouth metoprolol. He was seen by cardiology who switched heparin drip to xarelto. He is currently doing very well, no symptoms of dizziness or palpitations. Echocardiogram revealed ejection fraction of 45-50%. This will be followed up by cardiology in the office. He was cleared by cardiology for discharge. He will be discharged home in stable condition. Patient Condition at Discharge: Serious Plan - Discharge Summary Discharge Rx Participant: No New Discharge Prescriptions: New Rivaroxaban [Xarelto] 20 mg PO DAILY 30 Days #30 tab Continue Metoprolol Tartrate [Lopressor] 25 mg PO BID #60 tab amLODIPine BESYLATE/BENAZEPRIL [amLODIPine BESYLATE/BENAZEPRIL 5-10 MG] 1 cap PO DAILY sitaGLIPtin PHOS/metFORMIN HCL [Janumet Xr 50-1,000 mg Tablet] 1 tab PO AC- BID Discharge Medication List Metoprolol Tartrate [Lopressor] 25 mg PO BID #60 tab 07/10/17 [Rx] Rivaroxaban [Xarelto] 20 mg PO DAILY 30 Days #30 tab 03/09/21 [Rx] amLODIPine BESYLATE/BENAZEPRIL [amLODIPine BESYLATE/BENAZEPRIL 5-10 MG] 1 cap PO DAILY 03/09/21 [History] sitaGLIPtin PHOS/metFORMIN HCL [Janumet Xr 50-1,000 mg Tablet] 1 tab PO AC-BID 03/09/21 [History] Follow up Appointment(s)/Referral(s): [facility] [Primary Care Provider] - 1-2 days Patient Instructions/Handouts: A-fib (Atrial Fibrillation) (DC), Safe Use of Anticoagulants (DC) Activity/Diet/Wound Care/Special Instructions: Please follow up with your primary upper marker Dr. Luis Daniel Davis at [place] [facility] in 1- 2 weeks. Xarelto is covered $30 copay
--- NOTE | 2021-03-10 12:41 | P.PN ---
Subjective This is a pleasant 50-year-old male past medical history significant for paroxysmal atrial fibrillation, was on Xarelto in 2018,not on it currently, Type 2 Diabetes, hypertension, dyslipidemia, obstructive sleep apnea wears a BIPAP. He used to follow in the office with Dr. Draper on the last seen in 2018, followed up afterwards with Dr. Davis at [place]. We have been asked to see in consultation for atrial fibrillation with rapid ventricular response. Patient presents emergency department with complaints of palpitations. He states he woke up and felt his heart racing and it did no resolve. In the car, his palpitations continued, he felt lightheaded, had neck pain bilaterally and bilateral shoulder blade pain, he also felt diaphoretic. He brought himself to the emergency department for further evaluation. He denies any history of CAD, M I, Stroke. He denies family history of CAD. He denies smoking, alcohol or illicit drug use. He states that he has not had an issue with his A fib for 3 years. He is not vaccinated against covid-19. He denies any fever, chills, diarrhea, cough or shortness of breath. He denies symptoms of orthopnea or PND. Patient given 10mg IV Cardizem and started on IV Cardizem drip and IV heparin drip 03/10/21: Patient seen and examined at bedside, no acute distress. Covid-19 pcr negative. Troponin negative x 3. Labs reviewed. He converted to sinus mechanism, maintaining sinus mechanism HR 60s-70s. Echocardiogram revealed EF 45-50%, RV is mild to moderately dilated, mild mitral regurgiation, mild tricuspid regurgitation. He is maintained on IV heparin drip, metoprolol tartrate 25mg BID, atorvastatin 40mg nightly, amlodipine 5mg daily. PHYSICAL EXAMINATION Vitals reviewed CONSTITUTIONAL: No apparent distress. HEENT: Neck Supple. No JVD CHEST EXAMINATION: Lungs are clear to auscultation. No chest wall tenderness is noted on palpation or with deep breathing. HEART EXAMINATION: Regular rate and rhythm. S1, S2 heard. No murmurs, gallops or rub. ABDOMEN: Soft, nontender. Positive bowel sounds. EXTREMITIES: 2+ peripheral pulses, no lower extremity edema and no calf tenderness. NEUROLOGIC EXAMINATION: Patient is awake, alert and oriented x3. ASSESSMENT Paroxysmal atrial fibrillation with RVR -[id number] score 2 Cardiomyopathy, likely non-ischemic History of hypertension Type 2 Diabetes History of obstructive sleep apnea History of dyslipidemia PLAN -Switch to Xarelto 20mg daily, this is covered by patient's insurance with $30 copay/month -Continue metoprolol tartrate and Statin -Continue cardiac telemetry -From a cardiology perspective, patient is stable to be discharged home. He would like to follow up with Dr. Luis Daniel Davis at [place]. He states he will schedule an appointment in 1-2 weeks. Nurse Practitioner note has been reviewed, I agree with a documented findings and plan of care. Patient was seen and examined. Objective - Vital Signs Vital signs: Vital Signs Temp 98 F 03/10/21 11:04 Pulse 72 03/10/21 11:04 Resp 20 03/10/21 11:04 BP 143/85 03/10/21 11:04 Pulse Ox 94 L 03/10/21 11:04 Intake & Output 03/09/21 03/10/21 03/10/21 18:59 06:59 18:59 Intake Total 592.25 146.431 408.288 Balance 592.25 146.431 408.288 Weight 145.15 kg Intake: IV 10 68.56 Heparin Sod,Pork in 0.45% 68.56 NaCl 25,000 unit In 0.45 % NaCl 1 250ml.bag @ 6. 8894 UNITS/KG/HR 10 mls/ hr IV .Q24H [facility] Rx#: [id number] Invasive Line 1 10 Intake, IV Titration 4.25 146.431 99.728 Amount Diltiazem 125 mg In 4.25 Sodium Chloride 0.9% 100 ml @ Per Protocol IV .Q0M [facility] Rx#:[id number] Heparin Sod,Pork in 0.45% 146.431 99.728 NaCl 25,000 unit In 0.45 % NaCl 1 250ml.bag @ 6. 8894 UNITS/KG/HR 10 mls/ hr IV .Q24H [facility] Rx#: [id number] Oral 578 240 Other: Voiding Method Toilet Urinal # Voids 1 - Labs CBC & Chem 7: 03/10/21 07:13 03/10/21 07:13 Labs: Abnormal Lab Results - Last 24 Hours (Table) 03/09/21 03/09/21 03/10/21 Range/Units 16:43 20:29 00:30 APTT 30.9 H (22.0-30.0) sec Glucose (74-99) mg/dL POC Glucose (mg/dL) 152 H 109 H (75-99) mg/dL 03/10/21 03/10/21 03/10/21 Range/Units 06:33 07:13 08:38 APTT 46.7 H (22.0-30.0) sec Glucose 117 H (74-99) mg/dL POC Glucose (mg/dL) 126 H (75-99) mg/dL 03/10/21 Range/Units 11:33 APTT (22.0-30.0) sec Glucose (74-99) mg/dL POC Glucose (mg/dL) 140 H (75-99) mg/dL
== END 2021-03-10 12:48 | disposition home or self-care (01) ==
LOC: EC 11:04 → INTOOBSV 12:27 → 3SCARD 12:27
PROVIDERS: ADMIT Internal Medicine; ATTEND Internal Medicine
DX: I48.0 Paroxysmal atrial fibrillation (principal); E11.9 Type 2 diabetes mellitus without complications; I11.9 Hypertensive heart disease without heart failure; R79.89 Other specified abnormal findings of blood chemistry; Z20.822 Contact with and (suspected) exposure to COVID-19; I08.1 Rheumatic disorders of both mitral and tricuspid valves; R61 Generalized hyperhidrosis; G47.33 Obstructive sleep apnea (adult) (pediatric); E78.5 Hyperlipidemia, unspecified; M54.2 Cervicalgia; M10.9 Gout, unspecified; Z79.84 Long term (current) use of oral hypoglycemic drugs; Z79.899 Other long term (current) drug therapy; Z79.01 Long term (current) use of anticoagulants; Z80.3 Family history of malignant neoplasm of breast; Z83.3 Family history of diabetes mellitus
CPT/HCPCS: 99291; 96376 ×2; 96366 ×3; 96368; 96365; 96367; 96375; 36415; 93005; 93306; 80053; 80048; 84443; 83735; 84484; 85025 ×2; 85610 ×2; 85730 ×2; 87635; 71046; G0378 ×2; J1644 ×4

== ENCOUNTER → 2021-08-11 | Outpatient (CLI) | payer BC ==
--- NOTE | 2021-08-11 14:41 | MR ---
EXAMINATION TYPE: MR knee LT wo con DATE OF EXAM: 08/11/2021 COMPARISON: Outside left knee x-ray 15 days ago HISTORY: Left Knee Pain hand swelling. TECHNIQUE: Multiplanar, multisequence imaging of the left knee is performed without IV contrast. FINDINGS: MEDIAL MENISCUS: Anterior and posterior horns are intact without tear. LATERAL MENISCUS: Anterior and posterior horns are intact without tear. CRUCIATE LIGAMENTS: The anterior and posterior cruciate ligaments are intact and unremarkable. COLLATERAL LIGAMENTS: The medial collateral ligament and lateral collateral ligament complex are inta ct and unremarkable. EXTENSOR MECHANISM: Visualized quadriceps and patellar tendons are intact. EFFUSION: Moderate to large size suprapatellar joint effusion. POPLITEAL CYST: No popliteal/yousif cyst. TRICOMPARTMENT SPACES: Moderate narrowing and spurring patellofemoral compartment. Mild to moderate n arrowing and mild spurring medial tibial and lateral tibiofemoral compartments. [id number]-vd-[id number] tibi al condylar spurring. CARTILAGE: Fissuring and cartilaginous loss along the posterior patellar pole centrally. Some fissuri ng and cartilaginous loss medial tibiofemoral compartment sagittal image 23. BONE MARROW SIGNAL: No focal abnormal marrow signal is appreciated. OTHER: No additional significant abnormality is appreciated. IMPRESSION: 1. No meniscal or ligamentous tear is seen. 2. Moderate to large sized suprapatellar joint effusion. 3. Fairly moderate tricompartment degenerative changes as detailed above.
== END | disposition home or self-care (01) ==
LOC: RADMRIMAIN 13:30
PROVIDERS: ATTEND Orthopaedic Surgery
DX: M17.12 Unilateral primary osteoarthritis, left knee (principal)

== ENCOUNTER → 2021-09-15 | Outpatient (CLI) | payer BC ==
[2021-09-15 18:07] LABS: Basophils # (A) 0.06 X 10*3/uL (0.00-0.10); Basophils % (A) 0.7 %; Eosinophils # (A) 0.07 X 10*3/uL (0.04-0.35); Eosinophils % (A) 0.8 %; HCT 46.6 % (39.6-50.0); HGB 15.5 g/dL (13.0-17.0); Immature Grans, Automated 0.2 %; Lymphocytes # (A) 1.97 X 10*3/uL (0.90-5.00); Lymphocytes % (A) 23.7 %; MCH 29.7 pg (27.0-32.0); MCHC 33.3 g/dL (32.0-37.0); MCV 89.3 fL (80.0-97.0); Mean Platelet Volume 10.8 fL (9.5-12.2); Monocytes # (A) 0.61 X 10*3/uL (0.20-1.00); Monocytes % (A) 7.3 %; NRBC Per 100 WBC 0 /100 WBCS (0.0-0.0); Neutrophils # (A) 5.59 X 10*3/uL (1.80-7.70); Neutrophils % (A) 67.3 %; Platelet Count 177 X 10*3/uL (140-440); RBC 5.22 X 10*6/uL (4.40-5.60); RDW 13.2 % (11.5-14.5); WBC 8.32 X 10*3/uL (4.50-10.00)
[2021-09-15 18:24] LABS: Carbon Dioxide 25.9 mmol/L (20.0-27.5); Potassium 4.8 mmol/L (3.5-5.5)
== END | disposition home or self-care (01) ==
LOC: LABPAT 11:19
PROVIDERS: ATTEND Orthopaedic Surgery
DX: Z01.812 Encounter for preprocedural laboratory examination (principal)
CPT/HCPCS: 80051; 85025

== ENCOUNTER 2021-09-22 11:08 | Day surgery (SDC) | payer BC ==
[2021-09-16 12:53] VITALS: BMI 39.0
--- NOTE | 2021-09-21 14:28 | HP ---
HISTORY AND PHYSICAL REASON FOR ADMISSION: Surgery 09/22/2021 HISTORY OF PRESENT ILLNESS: Ed Ambrocio is a 51-year-old patient seen with progressive left knee pain. We discussed options for treatment, he elected to proceed with left knee arthroscopy. Consent obtained. PAST MEDICAL HISTORY: Rwe-cyksvbt-vqeqpdxog diabetes, hypertension. PAST SURGICAL HISTORY: Herniorrhaphy, knee arthroscopy. MEDICATIONS: Antihypertensive, Janumet. ALLERGIES: None. SOCIAL HISTORY: Denies tobacco use. PHYSICAL EVALUATION OF THE LEFT KNEE: Range of motion is 0-130, large effusion. Tenderness medial joint line. Positive medial Natalya's. Ligaments stable. Hip rotation without pain. Distal neurovascular exam is intact. RADIOGRAPHS: Left knee radiographs revealed some osteoarthritic changes. MRI revealed an effusion and osteoarthritic changes. IMPRESSION: 1. Internal derangement of left knee with osteochondral tear. 2. Rej-hyuidoz-gdvvopbvl diabetes. 3. Hypertension. PLAN: Left knee arthroscopy with chondroplasty and debridement. Surgery is 09/22/2021. MMODL / IJN: [id number] /
[~2021-09-22 11:08] MED LIST: DEXAMETHASONE SOD PHOSPHATE 4 MG/ML 1 ML VIAL IV ONE; HYDROmorphone 0.5 MG/0.5 ML SYRINGE IVP PRN; LACTATED RINGERS 1,000 ML IV SCH; MIDAZOLAM 2 MG/2 ML VIAL IV PRN; ONDANSETRON 4 MG/2 ML VIAL IVP ONE; SCOPOLAMINE 1 MG/72 HR PATCH TRANSDERM ONE; ceFAZolin 3 GM in SODIUM CHLORIDE 0.9% 100 ML IVPB PRN
[2021-09-22 11:35] LABS: Glucose,Whole Blood 109 mg/dL (70-110)
[2021-09-22] MEDS ORDERED: fentaNYL (PF) 50 MCG/ML 2 ML AMP ONE (12:06)
[2021-09-22] MEDS ORDERED: MIDAZOLAM 2 MG/2 ML VIAL ONE (12:06)
[2021-09-22] MEDS ORDERED: LIDOCAINE 2% INJ 20 MG/ML (2 ML VIAL) ONE (12:06)
[2021-09-22] MEDS ORDERED: PROPOFOL 10 MG/ML 20 ML VIAL IV ONE (12:06)
[2021-09-22] MEDS ORDERED: SUCCINYLCHOLINE CHLORIDE 100 MG/5 ML SYR IV ONE (12:06)
[2021-09-22] MEDS ORDERED: BUPIVACAINE (PF) 0.25% 30 ML VIAL INTRAARTIC ONE (12:39)
--- NOTE | 2021-09-22 13:02 | P.OP ---
Date of Procedure: 09/22/21 Preoperative Diagnosis: Internal derangement left knee Postoperative Diagnosis: 1. Tear medial meniscus left knee 2. Grade 4 chondromalacia medial femoral condyle left knee 3. Reactive synovitis medial, lateral and suprapatellar compartments left knee Procedure(s) Performed: 1. Arthroscopic partial medial meniscectomy left knee 2. Arthroscopic microfracture medial femoral condyle left knee 3. Arthroscopic partial synovectomy medial, lateral and suprapatellar compartments left knee Anesthesia: LIBRADOA, local Surgeon: Arian Figueroa Estimated Blood Loss (ml): 7 Pathology: none sent Condition: stable Disposition: PACU Indications for Procedure: 51-year-old patient who was seen with progressive left knee pain. After treatment options were discussed, he elected to proceed with arthroscopy. Operative Findings: See description of procedure Description of Procedure: Patient was taken to the operative suite. Patient underwent a general anesthetic by the department of anesthesia. Patient was given preoperative a ntibiotics. The left lower extremity was placed in a well-padded arthroscopic leg grace. The left leg was prepped and draped in the normal sterile orthopedic fashion. A lateral parapatellar and suprapatellar incision was made. Trochars were inserted. Arthroscopy was initiated. Suprapatellar pouch revealed diffuse thick reactive synovitis. The patellofemoral joint appeared to articulate congruently. There was grade 2 chondromalacia of the patella and grade 4 chondromalacia of the femoral sulcus. There were no significant osteochondral tears present.. The scope was guided into the medial gutter. No loose bodies or plica were identified. The scope was then guided into the medial compartment. A medial parapatellar incision was made. Trocar inserted followed by probe. There was a tear involving the posterior horn of the medial meniscus. There were areas of grade 3 chondromalacia changes of the weightbearing surface of the medial femoral condyle. There was one area of grade 4 chondromalacia along the central anterior aspect of the medial femoral condyle. There was thick reactive synovitis anteriorly. I performed a partial medial meniscectomy getting down to stable meniscal tissue. I performed a partial synovectomy decompressing the reactive synovitis anteriorly. I performed a chondroplasty getting down to stable osteochondral tissue. The residual meniscus was stable. There was good decompression of the synovitis. I again noted here of exposed bone measuring approximately 1 cm along the medial femoral condyle. I introduced a microfracture awl and performed a microfracture to the area penetrating the bone with resultant bleeding at the microfracture site. I again probed the residual osteochondral surface and was stable. Scope and probe were then guided into the intercondylar notch. Cruciates were identified, probed and found to be stable. The scope and probe were then guided into lateral compartment. Lateral meniscus was probed and was found to be stable. There was mild grade 1 chondromalacia changes of the lateral compartment. There was some thick reactive synovitis anteriorly. I introduced a motorized shaver and I performed a partial synovectomy. Shaver was removed. There was good decompression of the synovitis. The scope was in guided back into the suprapatellar compartment. I introduced a motorized shaver into the suprapatellar compartment. I debrided some piecemeal fragments of meniscus I encountered. I performed a partial synovectomy. The shaver was now removed. There was good decompression of the synovitis. I now took one more look around the entire knee, no residual debris. Instruments were now removed from the joint. The joint was infiltrated with .25% Marcaine. Steri-Strips were applied to the portal sites. Sterile dressings were applied. The patient was placed into a MARTHA hose. No tourniquet was utilized. The patient was awakened, transferred to a bed and taken to recovery stable satisfactory condition.
[2021-09-22 13:04] VITALS: TEMP 97
[2021-09-22 14:09] VITALS: PULSE 72; RESP 16
[2021-09-22 14:09] LABS: Glucose,Whole Blood 122 mg/dL (70-110)
[2021-09-22 14:22] VITALS: BP 129/58
== END 2021-09-22 13:35 | disposition home or self-care (01) ==
LOC: OR 11:08
PROVIDERS: ATTEND Orthopaedic Surgery
DX: M23.222 Derangement of posterior horn of medial meniscus due to old tear or injury, left knee (principal); M65.9 Synovitis and tenosynovitis, unspecified; M22.42 Chondromalacia patellae, left knee; M17.12 Unilateral primary osteoarthritis, left knee; I10 Essential (primary) hypertension; Z79.84 Long term (current) use of oral hypoglycemic drugs; E11.69 Type 2 diabetes mellitus with other specified complication; E78.5 Hyperlipidemia, unspecified; G47.33 Obstructive sleep apnea (adult) (pediatric); Z86.79 Personal history of other diseases of the circulatory system; Z79.899 Other long term (current) drug therapy; Z83.3 Family history of diabetes mellitus; Z80.3 Family history of malignant neoplasm of breast
CPT/HCPCS: 29881; 29876; 29879; J2250; J1100; J0690; J2405; J3010; J0330; J2704; J2001

== ENCOUNTER → 2022-10-20 | Outpatient (CLI) | payer BC ==
--- NOTE | 2022-10-20 17:17 | P.PN ---
Subjective DATE: DATE: 10/20/2022 FOLLOW UP VISIT. Patient with obstructive sleep apnea hypopnea syndrome return to sleep center for follow-up visit. Information from previous visit have been reviewed. Patient is using PAP equipment every night for the whole night, getting PAP supplies in time. The patient does not have significant problems with the mask, PAP unit and humidification. [place] sleepiness scale is 13. I checked information from PAP unit. PAP unit pressure maximal inspiratory pressure 17, minimal expiratory pressure 7, pressure-support 4, average pressure 17/13 cm H2O. Usage is 87% and around 50 % for more then 4 hours, average 4 hours per night. Leak is 15.1 l/m, which is in acceptable range. Apnea Hypopnea Index is 6.1, which improved comparing to the previous visit when it was 10.1. At that time pressure was increased from 13 to 17 maximal. MEDICATIONS:1. Metoprolol 2. Januvia 3. Amlodipine During physical exam: GENERAL: A pleasant patient without any distress. VITAL SIGNS: BP 153/96, HR 86, RR 16 , weight 308, temperature 98.2, oxygen saturation at room air 96 % . HEENT: PERRLA, EOMI.low position of soft palate, Mallapati 4 . NECK: Supple. No JVD. LUNGS: Clear to percussion and to auscultation. Good air exchange. No wheezing or rhonchi. HEART: S1, S2 regular. ABDOMEN: Soft and nontender. Obese EXTREMITIES: No clubbing or cyanosis. RECTANGULAR TANK COOPER: Awake, alert, and oriented x3. No focal deficit. I increased pressure in BiPAP unit to maximal inspiratory pressure 19.4 cm of water. Impressions: 1. Obstructive sleep apnea-hypopnea syndrome. Patient demonstrated good compliance with treatment, benefiting from treatment. 2. Obesity body mass index 43.5, patient increased his weight on 24 pounds comparing with previous visit. 3. Hypertension. 4. History of atrial fibrillation episodes in the past. 5. Status post multiple ear surgeries. Plan: 1. Continue using PAP equipment every night for the whole night. 2. To change air filter at least 1-2 times per month. 3. PAP unit should stay lower then position of the head. 4. Advised patient to remove all remaining water from humidifier canister daily and make it dry after each usage. Refill canister with fresh distilled water before each usage. 5. Sleep hygiene with regular time in bed for at least 8 hours. 6. Precautions related to driving. No driving if feel any sleepiness. 7. I will maintain prescription for PAP supplies including mask, tube, filters. 8. Follow up visit in 6 months or earlier if patient has any problems. 9. Watching and losing weight. Thank you very much for allowing me to participate in the management of your patient. Sami Perez MD, PhD, FAASM. Diplomat of [place] [employer], Sleep Medicine Board by [place] [employer] Vessel Traffic Officer of [facility] [place]
== END ==
LOC: 3 N SLEEP 16:23
PROVIDERS: ATTEND Internal Medicine
DX: G47.33 Obstructive sleep apnea (adult) (pediatric) (principal); I48.91 Unspecified atrial fibrillation; Z68.41 Body mass index [BMI] 40.0-44.9, adult; E66.9 Obesity, unspecified; I10 Essential (primary) hypertension; Z99.89 Dependence on other enabling machines and devices
CPT/HCPCS: 99212

== ENCOUNTER → 2023-04-27 | Outpatient (CLI) | payer BC ==
--- NOTE | 2023-04-27 16:53 | P.PN ---
Subjective DATE: 04/27/2023 FOLLOW UP VISIT. Patient with obstructive sleep apnea hypopnea syndrome return to sleep center for follow-up visit. Information from previous visit have been reviewed. Patient is using PAP equipment every night for the whole night, getting PAP supplies in time. The patient does not have significant problems with the mask, PAP unit and humidification. [place] sleepiness scale is 6, which is normal. I checked information from PAP unit. PAP unit pressure maximal inspiratory pressure 19.4, minimal expiratory pressure 7, pressure-support 4, average pressure 19.3 over 15.3 cm H2O. Usage is 96 % for more then 4 hours, average 5.1 hours per night. Leak is 18 l/m, which is in acceptable range. Apnea Hypopnea Index is 3.6, which is normal. MEDICATIONS:1. Metoprolol 50 mg once a day 2. Janumet 50/100 twice a day During physical exam: GENERAL: A pleasant patient without any distress. VITAL SIGNS: BP 137/88, HR 83, RR 20 , weight 310.2, temperature 98.8, oxygen saturation at room air 95 % . HEENT: PERRLA, EOMI.low position of soft palate, Mallapati 4 . NECK: Supple. No JVD. LUNGS: Clear to percussion and to auscultation. Good air exchange. No wheezing or rhonchi. HEART: S1, S2 regular. ABDOMEN: Soft and nontender. Slightly obese EXTREMITIES: No clubbing or cyanosis. FINISH[employer]ODUCTS: Awake, alert, and oriented x3. No focal deficit. Impressions: 1. Obstructive sleep apnea-hypopnea syndrome. Patient demonstrated great compliance with treatment, benefiting from treatment. 2. Diabetes mellitus, recent hemoglobin A1c according to patient 6. 3. Obesity. 4. Hypertension. 5. History of atrial fibrillation in the past, no recent episodes. 6. Status post multiple ear surgery. Plan: 1. Continue using PAP equipment every night for the whole night. 2. To change air filter at least 1-2 times per month. 3. PAP unit should stay lower then position of the head. 4. Advised patient to remove all remaining water from humidifier canister daily and make it dry after each usage. Refill canister with fresh distilled water before each usage. 5. Sleep hygiene with regular time in bed for at least 8 hours. 6. Precautions related to driving. No driving if feel any sleepiness. 7. I will maintain prescription for PAP supplies including mask, tube, filters. 8. Watching and losing weight. 9. Follow up visit in 6 months or earlier if patient has any problems. Thank you very much for allowing me to participate in the management of your patient. Sami Perez MD, PhD, FAASM. Diplomat of [place] [employer], Sleep Medicine Board by [place] [employer] Truck Rental Clerk of [facility] [place]
== END ==
LOC: 3 N SLEEP 16:22
PROVIDERS: ATTEND Internal Medicine
DX: G47.33 Obstructive sleep apnea (adult) (pediatric) (principal); E11.9 Type 2 diabetes mellitus without complications; E66.9 Obesity, unspecified; I10 Essential (primary) hypertension; I48.91 Unspecified atrial fibrillation; Z98.890 Other specified postprocedural states; Z79.84 Long term (current) use of oral hypoglycemic drugs; Z79.899 Other long term (current) drug therapy; Z99.89 Dependence on other enabling machines and devices
CPT/HCPCS: 99212

== ENCOUNTER → 2023-05-26 | Outpatient (CLI) | payer BC ==
[2023-05-26 14:56] LABS: African American GFR (CKD) >90 (>60 ml/min/1.73 sqM); Blood Urea Nitrogen 17 mg/dL (9-20); Non-African American GFR(CKD) 81 (>60 ml/min/1.73 sqM)
--- NOTE | 2023-05-26 15:35 | CT ---
EXAMINATION TYPE: CT abdomen w con DATE OF EXAM: 05/26/2023 COMPARISON: None available. HISTORY: Right flank pain. CT DLP: 1489 mGycm Automated exposure control for dose reduction was used. TECHNIQUE: Helical acquisition of images was performed from the lung bases through the top of iliac crest to include entire abdomen. CONTRAST: Performed with Oral Contrast and with IV Contrast, patient injected with 100 mL of Isovue 300. FINDINGS: LUNG BASES: No significant abnormality is appreciated. LIVER/GB: The liver is enlarged measuring 21.3 cm in craniocaudal dimension. There is diffuse decreas ed attenuation of liver compatible with fatty liver infiltration. No radiopaque gallstones are seen. PANCREAS: No significant abnormality is seen. SPLEEN: No significant abnormality is seen. ADRENALS: No significant abnormality is seen. KIDNEYS: There are a few scattered simple cysts within the kidneys bilaterally. There is a more solid -appearing lesion in the inferior pole of the right kidney measuring 2 cm in diameter. This is incomp letely evaluated as a noncontrast evaluation was not performed and would raise the possibility of a r enal cell carcinoma. A renal mass protocol CT or MRI without and with contrast would be recommended f or further evaluation. BOWEL: No significant abnormality is seen. LYMPH NODES: No significant abnormality is seen. OSSEOUS STRUCTURES: No significant abnormality is seen. FREE AIR: No free air is visualized. OTHER: IMPRESSION: 1. QUESTION OF A SOLID MASS WITHIN THE INFERIOR POLE LEFT KIDNEY WOULD RAISE THE POSSIBILITY OF A GENE AL CELL CARCINOMA. A RENAL MASS PROTOCOL CT OR MRI IS RECOMMENDED FOR FURTHER EVALUATION WITHOUT AND WITH CONTRAST. THE EXAMINATION CURRENTLY PERFORMED IS LIMITED FOR DETERMINATION OF ENHANCEMENT THE RE IS NO NONCONTRAST PORTION OF THE EXAMINATION AT THIS TIME. 2. HEPATOMEGALY WITH DIFFUSE HEPATIC STEATOSIS. 3. NO ACUTE FINDINGS.
== END | disposition home or self-care (01) ==
LOC: RADCTMAIN 14:15
PROVIDERS: ATTEND Family Medicine
DX: K76.0 Fatty (change of) liver, not elsewhere classified (principal); N28.89 Other specified disorders of kidney and ureter; R16.0 Hepatomegaly, not elsewhere classified
CPT/HCPCS: 82565; 84520; 74160; 36415; Q9967

== ENCOUNTER → 2023-06-06 | Outpatient (CLI) | payer BC ==
--- NOTE | 2023-06-10 16:00 | MR ---
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 COMPARISON: CT scan abdomen from 05/26/2023. TECHNIQUE: Multiplanar multi-sequence imaging was performed without contrast. Post contrast imaging was performed. Post IV contrast subtraction images were also submitted for review. IV Contrast: 14 cc Gadavist FINDINGS: LOWER CHEST: No gross irregularity. ABDOMEN Liver: No evidence for hepatic steatosis or cirrhosis. Few scattered arterial phase enhancing areas w hich become isointense on delayed imaging example includes right hepatic lobe postcontrast arterial p hase imaging series 901 image 431 Gallbladder and Bile ducts: No evidence for ductal dilation, or biliary stricture or evidence of chol edocholithiasis. The gallbladder is within normal limits. Pancreas: No ductal dilation. No evidence for solid mass. Spleen: Normal for size. Adrenal glands: Unremarkable. Kidneys: Bilateral high T2 simple appearing renal cysts which do not enhance. Additionally there is a lower T2/intermediate T1 signal lesion signal lesion in the left inferior kidney measuring 19 x 18 m m which is predominantly exophytic with heterogenous postcontrast enhancement. Unclear whether these are thin septations are internal enhancement. Findings confirmed on subtraction imaging. Stomach and Bowel: No evidence for bowel wall thickening or evidence for obstruction. Retroperitoneum/Peritoneum: No evidence of pneumoperitoneum or free fluid. Vasculature: No aortic aneurysm. Musculoskeletal: The osseous structures appear intact. Lymph Nodes: No gross evidence for lymphadenopathy. Abdominal wall: Unremarkable. IMPRESSION: 1. Left inferior renal pole exophytic heterogenous lesion with internal postcontrast enhancement or septations with enhancement. Surveillance imaging recommended in 6 months with MRI renal mass protoco l and urology consultation if not already completed. 2. Simple appearing bilateral renal cysts.
== END | disposition home or self-care (01) ==
LOC: RADMRIMAIN 13:32
PROVIDERS: ATTEND Family Medicine
DX: N28.1 Cyst of kidney, acquired (principal); D41.00 Neoplasm of uncertain behavior of unspecified kidney; N28.89 Other specified disorders of kidney and ureter
CPT/HCPCS: 74183; A9585

== ENCOUNTER → 2023-11-30 | Outpatient (CLI) | payer BC ==
[2023-11-30 17:11] VITALS: BP 145/90; PULSE 72; RESP 20; TEMP 98.5
--- NOTE | 2023-11-30 17:22 | P.PROGSL ---
Subjective DATE: 11/30/2023 FOLLOW UP VISIT. Patient with obstructive sleep apnea hypopnea syndrome return to sleep center for follow-up visit. Information from previous visit have been reviewed. Patient is using PAP equipment every night for the whole night, getting PAP supplies in time. The patient does not have significant problems with the mask, PAP unit and humidification. [place] sleepiness scale is 5, which is normal. I checked information from PAP unit. PAP unit pressure maximal inspiratory pressure 19.4, minimal expiratory pressure 7, pressure support 4, average pressure 18.5 or 14.5 cm H2O. Usage is 100% for more then 4 hours, average 6.5 hours per night. Leak is 30 l/m, which is in acceptable range. Apnea Hypopnea Index is 1.9, which is normal. MEDICATIONS have been reviewed, please see below. During physical exam: GENERAL: A pleasant patient without any distress. VITAL SIGNS: Please see below, weight is 298.6 lbs. HEENT: PERRLA, EOMI.low position of soft palate, Mallapati 4 . NECK: Supple. No JVD. LUNGS: Clear to percussion and to auscultation. Good air exchange. No wheezing or rhonchi. HEART: S1, S2 regular. ABDOMEN: Soft and nontender. Obese EXTREMITIES: No clubbing or cyanosis. SHEET ROCK SANDER: Awake, alert, and oriented x3. No focal deficit. Impressions: 1. Obstructive sleep apnea-hypopnea syndrome. Patient demonstrated great compliance with treatment, benefiting from treatment. 2. Obesity, BMI 41.7, patient lost 12 pounds since previous visit. 3. Diabetes mellitus, recent hemoglobin A1c around 7 according to patient. 4. Hypertension. 5. History of atrial fibrillation in the past, no recent episodes. 6. Status post left kidney resection for cancer in September 2023. 7. Status post multiple ear surgery. Plan: 1. Continue using PAP equipment every night for the whole night. 2. Sleep hygiene with regular time in bed for at least 7.5-8 hours 3. PAP unit should stay lower then position of the head. 4. Advised patient to remove all remaining water from humidifier canister daily and make it dry after each usage. Refill canister with fresh distilled water before each usage. 5. Watching and continue losing weight. 6. Precautions related to driving. No driving if feel any sleepiness. 7. I will maintain prescription for PAP supplies including mask, tube, filters. 8. Follow up visit in 6 months or earlier if patient has any problems. Thank you very much for allowing me to participate in the management of your patient. Sami Perez MD, PhD, FAASM. Diplomat of [place] [employer] Sleep Medicine, Sleep Medicine Board by [place] [employer] Medicine Customer Solutions Coordinator of [facility] [place] Objective - Vital Signs Vital Signs: Vital Signs Temp 98.5 F 11/30/23 17:11 Pulse 72 11/30/23 17:11 Resp 20 11/30/23 17:11 BP 145/90 11/30/23 17:11 Pulse Ox 97 11/30/23 17:11 FiO2 Intake & Output 11/29/23 11/30/23 11/30/23 18:59 06:59 18:59 Weight 135.171 kg Home Medications: Home Medications Medication Instructions Recorded Confirmed Type sitaGLIPtin PHOS/metFORMIN HCL 1 tab PO AC-BID 03/09/21 11/30/23 History [Janumet Xr 50-1,000 mg Tablet] dilTIAZem HCL [Cartia Xt] 180 mg PO DAILY 09/16/21 11/30/23 History
== END ==
LOC: 3 N SLEEP 16:36
PROVIDERS: ATTEND Internal Medicine
CPT/HCPCS: 99212

== ENCOUNTER 2024-02-23 09:09 | Emergency (ER) | payer BC ==
[2024-02-23 09:21] VITALS: TEMP 97.9
--- NOTE | 2024-02-23 09:29 | ED ---
Abdominal Pain HPI - General Chief Complaint: Abdominal Pain Stated Complaint: R flank pain Time Seen by Provider: 02/23/24 09:22 Source: patient, RN notes reviewed Mode of arrival: ambulatory Limitations: no limitations - History of Present Illness Initial Comments: 53-year-old male presents emergency department complaint of right side abdominal pain states it is more in his flank, upper abdomen states he saw his PCP 2 weeks ago was can order a CAT scan has not been completed he does have a history of renal cyst, renal carcinoma with partial nephrectomy in the left. Patient has appointment with his urologist states discomfort was worsening and more worrisome. No change in bowel habits no dysuria no fevers or chills no chest pain. - Related Data Home Medications Medication Instructions Recorded Confirmed sitaGLIPtin PHOS/metFORMIN HCL 1 tab PO AC-BID 03/09/21 11/30/23 [Janumet Xr 50-1,000 mg Tablet] dilTIAZem HCL [Cartia Xt] 180 mg PO DAILY 09/16/21 11/30/23 Allergies Allergy/AdvReac Type Severity Reaction Status Date / Time No Known Allergies Allergy Verified 02/23/24 09:17 Review of Systems ROS Statement: Those systems with pertinent positive or pertinent negative responses have been documented in the HPI. ROS Other: All systems not noted in ROS Statement are negative. Past Medical History Past Medical History: Atrial Fibrillation, Cancer, Diabetes Mellitus, Hyperlipidemia, Hypertension, Osteoarthritis (OA), Pneumonia, Renal Disease, Sleep Apnea/CPAP/BIPAP Additional Past Medical History / Comment(s): NIDDM type II, RO with bipap use, afib RVR, vitamin D deficiency, past L foot cellulitis, past gout R great toe.; kidney cancer, 1/2 of kidney taken out History of Any Multi-Drug Resistant Organisms: None Reported Past Surgical History: Ablation, Adenoidectomy, Ear Surgery, Hernia Repair, Orthopedic Surgery, Tonsillectomy Additional Past Surgical History / Comment(s): left knee arthroscopy, mult ear surgeries-abiola, lipoma removal L humerus; 1/2 of kidney taken out Past Anesthesia/Blood Transfusion Reactions: Motion Sickness Past Psychological History: No Psychological Hx Reported Smoking Status: Never smoker Past Alcohol Use History: Rare Past Drug Use History: None Reported - Past Family History Mother Family Medical History: Cancer, Diabetes Mellitus Additional Family Medical History / Comment(s): BREAST CANCER Father Family Medical History: Diabetes Mellitus General Exam Limitations: no limitations General appearance: alert, in no apparent distress Head exam: Present: atraumatic, normocephalic, normal inspection Eye exam: Present: normal appearance, PERRL, EOMI. Absent: scleral icterus, conjunctival injection, periorbital swelling ENT exam: Present: normal exam, mucous membranes moist Neck exam: Present: normal inspection, full ROM. Absent: tenderness, meningismus, lymphadenopathy Respiratory exam: Present: normal lung sounds bilaterally. Absent: respiratory distress, wheezes, rales, rhonchi, stridor Cardiovascular Exam: Present: regular rate, normal rhythm, normal heart sounds. Absent: systolic murmur, diastolic murmur, rubs, gallop, clicks GI/Abdominal exam: Present: soft, tenderness, normal bowel sounds. Absent: distended, guarding, rebound, rigid Course Vital Signs 02/23/24 02/23/24 02/23/24 09:17 10:04 12:00 Temperature 97.9 F Pulse Rate 60 65 61 Respiratory 18 17 18 Rate Blood Pressure 146/92 125/86 141/89 O2 Sat by Pulse 100 97 99 Oximetry Medical Decision Making - Medical Decision Making Was pt. sent in by a medical professional or institution (, PA, FAMILY COURT JUSTICE, urgent care, hospital, or care home...) When possible be specific @ -No Did you speak to anyone other than the patient for history (EMS, parent, family, police, friend...)? What history was obtained from this source @ -No Did you review nursing and triage notes (agree or disagree)? Why? @ -I reviewed and agree with nursing and triage notes Were old charts reviewed (outside hosp., previous admission, EMS record, old EK G, old radiological studies, urgent care reports/EKG's, care home records)? Report findings @ -No old charts were reviewed Differential Diagnosis (chest pain, altered mental status, abdominal pain women, abdominal pain men, vaginal bleeding, weakness, fever, dyspnea, syncope, headache, dizziness, GI bleed, back pain, seizure, CVA, palpatations, mental health, musculoskeletal)? @ -Differential Abdominal Pain Men: Appendicitis, cholecystitis, diverticulosis, ischemic bowel, pancreatitis, hepa titis, UTI, gastroenteritis, AAA, incarcerated hernia, bowel obstruction, constipation, inflammatory bowel, hepatitis, peptic ulcer disease, splenic infarction, perforated viscus, testicular torsion, this is not meant to be an all-inclusive list EKG interpreted by me (3pts min.). @ -None X-rays interpreted by me (1pt min.). @ -None done CT interpreted by me (1pt min.). @ -CT abdomen pelvis showing no acute intra-abdominal process surgical changes U/S interpreted by me (1pt. min.). @ -Ultra sound gallbladder shows fatty liver no other acute process What testing was considered but not performed or refused? (CT, X-rays, U/S, labs)? Why? @ -None What meds were considered but not given or refused? Why? @ -None Did you discuss the management of the patient with other professionals (professionals i.e. , PA, FAMILY COURT JUSTICE, lab, RT, psych nurse, addiction social worker, archivist political history, teacher, staff antisubmarine officer, clinical case manager)? Give summary @ -No Was smoking cessation discussed for >3mins.? @ -No Was critical care preformed (if so, how long)? @ -No Were there social determinants of health that impacted care today? How? (Homelessness, low income, unemployed, alcoholism, drug addiction, transportation, low edu. Level, literacy, decrease access to med. care, retirement, rehab)? @ -No Was there de-escalation of care discussed even if they declined (Discuss DNR or withdrawal of care, Hospice)? DNR status @ -No What co-morbidities impacted this encounter? (DM, HTN, Smoking, COPD, CAD, Cancer, CVA, ARF, Chemo, Hep., AIDS, mental health diagnosis, sleep apnea, morbid obesity)? @ -None Was patient admitted / discharged? Hospital course, mention meds given and route, prescriptions, significant lab abnormalities, going to OR and other pertinent info. @ -Urged patient has no acute findings laboratory studies and imaging unr emarkable. Patient has a follow-up appoint with urologist zenon crook discussed. Undiagnosed new problem with uncertain prognosis? @ -No Drug Therapy requiring intensive monitoring for toxicity (Heparin, Nitro, Insulin, Cardizem)? @ -No Were any procedures done? @ -No Diagnosis/symptom? @ -Abdominal pain Acute, or Chronic, or Acute on Chronic? @ -Acute Uncomplicated (without systemic symptoms) or Complicated (systemic symptoms)? @ -uncomplicated Side effects of treatment? @ -No Exacerbation, Progression, or Severe Exacerbation? @ -No Poses a threat to life or bodily function? How? (Chest pain, [place], [place], pneumonia, PE, COPD, DKA, ARF, appy, cholecystitis, CVA, Diverticulitis, Homicidal, Amalia cidal, threat to staff... and all critical care pts) @ -No - Lab Data Result diagrams: 02/23/24 09:44 02/23/24 09:44 Lab Results 02/23/24 02/23/24 Range/Units 09:44 09:44 WBC 7.1 (3.8-10.6) k/uL RBC 5.24 (4.30-5.90) m/uL Hgb 15.7 (13.0-17.5) gm/dL Hct 46.4 (39.0-53.0) % MCV 88.5 (80.0-100.0) fL MCH 30.0 (25.0-35.0) pg MCHC 33.9 (31.0-37.0) g/dL RDW 13.3 (11.5-15.5) % Plt Count 171 (150-450) k/uL MPV 7.8 Neutrophils % 66 % Lymphocytes % 26 % Monocytes % 5 % Eosinophils % 2 % Basophils % 1 % Neutrophils # 4.7 (1.3-7.7) k/uL Lymphocytes # 1.8 (1.0-4.8) k/uL Monocytes # 0.3 (0-1.0) k/uL Eosinophils # 0.1 (0-0.7) k/uL Basophils # 0.1 (0-0.2) k/uL Sodium 137 (137-145) mmol/L Potassium 4.1 (3.5-5.1) mmol/L Chloride 102 (98-107) mmol/L Carbon Dioxide 32 H (22-30) mmol/L Anion Gap 3 mmol/L BUN 18 (9-20) mg/dL Creatinine 1.06 (0.66-1.25) mg/dL Est GFR (CKD-EPI)AfAm >90 (>60 ml/min/1.73 sqM) Est GFR (CKD-EPI)NonAf 80 (>60 ml/min/1.73 sqM) Glucose 178 H (74-99) mg/dL Calcium 9.3 (8.4-10.2) mg/dL Total Bilirubin 0.7 (0.2-1.3) mg/dL AST 47 (17-59) U/L ALT 77 H (4-49) U/L Alkaline Phosphatase 86 (38-126) U/L Total Protein 7.6 (6.3-8.2) g/dL Albumin 4.5 (3.5-5.0) g/dL Lipase 95 (23-300) U/L Disposition Clinical Impression: Abdominal pain Disposition: HOME SELF-CARE Condition: Stable Instructions (If sedation given, give patient instructions): Abdominal Pain (ED) Additional Instructions: Please return to the Emergency Department if symptoms worsen or any other concerns. Is patient prescribed a controlled substance at d/c from ED?: No Referrals: Brennan Posey DO [Primary Care Provider] - 1-2 days Time of Disposition: 12:38
[2024-02-23 09:56] LABS: Basophils # (A) 0.1 k/uL (0-0.2); Basophils % (A) 1 %; Eosinophils # (A) 0.1 k/uL (0-0.7); Eosinophils % (A) 2 %; HCT 46.4 % (39.0-53.0); HGB 15.7 gm/dL (13.0-17.5); Lymphocytes # (A) 1.8 k/uL (1.0-4.8); Lymphocytes % (A) 26 %; MCHC 33.9 g/dL (31.0-37.0); MCV 88.5 fL (80.0-100.0); Mean Platelet Volume 7.8; Monocytes # (A) 0.3 k/uL (0-1.0); Monocytes % (A) 5 %; Neutrophils # (A) 4.7 k/uL (1.3-7.7); Neutrophils % (A) 66 %; Platelet Count 171 k/uL (150-450); RBC 5.24 m/uL (4.30-5.90); RDW 13.3 % (11.5-15.5); WBC 7.1 k/uL (3.8-10.6)
[2024-02-23] MEDS: SODIUM CHLORIDE 0.9% 1,000 ML IV STA (10:03)
[2024-02-23 10:08] LABS: ALT 77 U/L (4-49); AST 47 U/L (17-59); African American GFR (CKD) >90 (>60 ml/min/1.73 sqM); Albumin 4.5 g/dL (3.5-5.0); Alkaline Phosphatase 86 U/L (38-126); Anion Gap 3 mmol/L; Blood Urea Nitrogen 18 mg/dL (9-20); Calcium 9.3 mg/dL (8.4-10.2); Carbon Dioxide 32 mmol/L (22-30); Chloride 102 mmol/L (98-107); Glucose 178 mg/dL (74-99); Lipase 95 U/L (23-300); Non-African American GFR(CKD) 80 (>60 ml/min/1.73 sqM); Potassium 4.1 mmol/L (3.5-5.1); Sodium 137 mmol/L (137-145); Total Bilirubin 0.7 mg/dL (0.2-1.3); Total Protein 7.6 g/dL (6.3-8.2)
--- NOTE | 2024-02-23 11:09 | CT ---
EXAMINATION TYPE: CT abdomen pelvis w con DATE OF EXAM: 02/23/2024 COMPARISON: 05/26/2023 CLINICAL INDICATION: Male, 53 years old with history of abdominal pain right, left prior renal carcin christopher; PHH, RIGHT FLANK PAIN X3 WEEKS H/O RENAL CA IN REMISSSION TECHNIQUE: Performed without Oral Contrast and with IV Contrast, patient injected with 100 mL of Isovue 300. CT DLP: 2590.[address] CTDI: mGy Automated exposure control for dose reduction was used. FINDINGS: The lung bases are clear. The gallbladder is normal without distention, wall thickening, pericholecystic fluid or gallstones. T here is no biliary ductal dilatation. There is no focal mass or organomegaly involving the liver, pancreas, spleen or adrenal glands. There is mild fatty infiltration of the liver. There are multiple stable renal cysts. There is a small defect in the posterior left renal cortex pre sumably for prior treatment of a focal renal cell carcinoma which is the provided history.. The caliber the abdominal aorta is normal is no retroperitoneal adenopathy or hemorrhage. The bowel loops are normal in caliber and there is no evidence of dilatation or obstruction. No infla mmatory changes are identified in the bowel wall or mesentery. There is no free intraperitoneal air or fluid. No pelvic mass, free fluid, abscess or adenopathy. The osseous structures and soft tissues are intact. IMPRESSION: No acute changes within the abdomen or pelvis. No suspicious abnormalities. [facility], , 02/23/2024 11:07 AM
--- NOTE | 2024-02-23 12:28 | US ---
EXAMINATION TYPE: US gallbladder DATE OF EXAM: 02/23/2024 COMPARISON: NONE CLINICAL INDICATION: Male, 53 years old with history of pain; Rt subcostal pain TECHNIQUE: Grayscale and color Doppler imaging of the right upper quadrant was performed. FINDINGS: EXAM MEASUREMENTS: Liver Length: 20.2 cm Gallbladder Wall: 0.2 cm CBD: 0.4 cm Right Kidney: 14.2x6.2x6.2 cm Gas Leak Inspector Helper notes: The exam limited by bowel and body habitus Pancreas: Only portions of the pancreatic body are seen. Remainder is obscured by bowel gas shadowin g. Liver: markedly enlarged, Increased attenuation, decreased visualization of vessels. 4 filled attenu ation. Gallbladder: wnl Evidence for sonographic Rankin's sign: No CBD: wnl Right Kidney: No hydronephrosis or masses seen IMPRESSION: 1. Hepatomegaly at 20.2 cm with severe hepatic steatosis. Appropriate clinical management is advised. 2. No gallstones or biliary ductal dilatation. [facility], , 02/23/2024 12:26 PM
[2024-02-23 13:22] VITALS: BP 137/90; PULSE 69; RESP 19
== END 2024-02-23 13:22 | disposition home or self-care (01) ==
LOC: EC 09:09
DX: R10.9 Unspecified abdominal pain (principal)
CPT/HCPCS: 36415; 80053; 83690; 85025; 76705; 74177; 99284; 96360; Q9967

== ENCOUNTER → 2024-05-16 | Outpatient (CLI) | payer BC ==
[2024-05-16 20:08] LABS: HCT 46.2 % (39.6-50.0); HGB 15.9 g/dL (13.0-17.0); MCH 30.5 pg (27.0-32.0); MCHC 34.4 g/dL (32.0-37.0); MCV 88.5 FL (80.0-97.0); Mean Platelet Volume 10.6 FL (9.5-12.2); NRBC Per 100 WBC 0 X 10*3/uL (0.00-0.01); Platelet Count 182 X 10*3/uL (140-440); RBC 5.22 X 10*6/uL (4.40-5.60); RDW 13.3 % (11.5-14.5); WBC 7.35 X 10*3/uL (4.50-10.00)
[2024-05-16 21:07] LABS: BUN/Creat Ratio 13.09 Ratio (12.00-20.00); Blood Urea Nitrogen 14.4 mg/dL (9.0-27.0); Calcium 9.7 mg/dL (8.7-10.3); Carbon Dioxide 25.2 mmol/L (21.6-31.8); Chloride 100 mmol/L (96-109); Glucose 218 mg/dL (70-110); Potassium 4.1 mmol/L (3.5-5.5); Sodium 139 mmol/L (135-145)
== END | disposition home or self-care (01) ==
LOC: LABWHC1 12:56
PROVIDERS: ATTEND Urology
DX: C64.2 Malignant neoplasm of left kidney, except renal pelvis (principal)
CPT/HCPCS: 36415; 80048; 85027

== ENCOUNTER → 2024-08-30 | Outpatient (CLI) | payer BC ==
--- NOTE | 2024-09-02 22:08 | MR ---
EXAMINATION TYPE: MR knee LT wo con DATE OF EXAM: 08/30/2024 COMPARISON: Prior MRI left knee August 11, 2021. Outside left knee x-ray August 21, 2024 HISTORY: left knee pain for a few months, history of surgery TECHNIQUE: Multiplanar, multisequence images of the knee is performed without IV contrast. FINDINGS: MEDIAL MENISCUS: More prominent oblique signal posterior horn likely extends to the inferior articula r surface. LATERAL MENISCUS: Anterior and posterior horns are intact without tear. CRUCIATE LIGAMENTS: The anterior and posterior cruciate ligaments are intact and unremarkable. COLLATERAL LIGAMENTS: The medial collateral ligament and lateral collateral ligament complex are inta ct and unremarkable. EXTENSOR MECHANISM: Visualized quadriceps and patellar tendons are intact. Prominent bony projections anterior aspect of the patella are redemonstrated. Mild to moderate prepatellar and superficial infr apatellar subcutaneous edema is redemonstrated EFFUSION: No significant suprapatellar joint effusion on current study. POPLITEAL CYST: No popliteal/yousif cyst. TRICOMPARTMENT SPACES: Moderate tricompartment joint space loss and spurring. CARTILAGE: Chondromalacia patella redemonstrated with some fissuring and cartilaginous loss along the medial posterior aspect of the patella. Cartilaginous loss medial tibiofemoral compartment more prom inent versus prior. BONE MARROW SIGNAL: Subchondral cystic change with areas of increased T2 signal central tibial platea u. Some increased T2 signal inferior medial aspect of the patella. OTHER: No additional significant abnormality is appreciated. IMPRESSION: 1. New at least intrasubstance suspected full-thickness tear posterior horn of medial meniscus. 2. Tricompartment degenerative changes which are at least moderate and more prominent versus prior MR I as detailed above. [facility], , 09/02/2024 10:06 PM
== END | disposition home or self-care (01) ==
LOC: RADMRIMAIN 18:24
PROVIDERS: ATTEND Orthopaedic Surgery
DX: S83.242A Other tear of medial meniscus, current injury, left knee, initial encounter (principal); M17.12 Unilateral primary osteoarthritis, left knee

== ENCOUNTER → 2024-09-24 | Outpatient (CLI) | payer BC ==
[2024-09-24 15:27] LABS: Anion Gap 11.0 mmol/L (4.00-12.00); Carbon Dioxide 27.0 mmol/L (21.6-31.8); Chloride 102.0 mmol/L (96-109); Potassium 4.4 mmol/L (3.5-5.5); Sodium 140.0 mmol/L (135-145)
[2024-09-24 15:43] LABS: Basophils # (A) 0.05 X 10*3/uL (0.00-0.10); Basophils % (A) 0.8 %; Eosinophils # (A) 0.07 X 10*3/uL (0.04-0.35); Eosinophils % (A) 1.1 %; HCT 47.1 % (39.6-50.0); HGB 15.8 g/dL (13.0-17.0); Immature Grans, Automated 0.70 %; Lymphocytes # (A) 1.80 X 10*3/uL (0.90-5.00); Lymphocytes % (A) 29.4 %; MCH 29.9 pg (27.0-32.0); MCHC 33.5 g/dL (32.0-37.0); MCV 89.2 FL (80.0-97.0); Monocytes # (A) 0.37 X 10*3/uL (0.20-1.00); Monocytes % (A) 6.0 %; NRBC Per 100 WBC 0 X 10*3/uL (0.00-0.01); Neutrophils # (A) 3.79 X 10*3/uL (1.80-7.70); Neutrophils % (A) 62.0 %; Platelet Count 191 X 10*3/uL (140-440); RBC 5.28 X 10*6/uL (4.40-5.60); RDW 13.3 % (11.5-14.5); WBC 6.12 X 10*3/uL (4.50-10.00)
== END | disposition home or self-care (01) ==
LOC: LABPAT 11:29
PROVIDERS: ATTEND Orthopaedic Surgery
DX: Z01.818 Encounter for other preprocedural examination (principal); M23.92 Unspecified internal derangement of left knee
CPT/HCPCS: 80051; 85025; 93005

== ENCOUNTER 2024-10-02 07:16 | Day surgery (SDC) | payer BC ==
[2024-10-02] MEDS: IV FLUID CONTINUATION 1,000 ML IV ONE (07:46)
[2024-10-02] MEDS ORDERED: MIDAZOLAM 2 MG/2 ML VIAL ONE (08:23)
[2024-10-02] MEDS ORDERED: PHENYLEPHRINE 10 MG/ML VIAL ONE (08:23)
[2024-10-02] MEDS ORDERED: PROPOFOL 10 MG/ML 20 ML VIAL IV ONE (08:23)
[2024-10-02] MEDS ORDERED: LIDOCAINE 1% INJ 10MG/ML (20 ML MDV) ONE (08:23)
[2024-10-02] MEDS ORDERED: GLYCOPYRROLATE 0.2 MG/ML 2 ML VIAL ONE (08:23)
[2024-10-02] MEDS ORDERED: SUCCINYLCHOLINE CHLORIDE 200 MG/10 ML VIAL IV ONE (08:23)
[2024-10-02] MEDS ORDERED: fentaNYL (PF) 50 MCG/ML 2 ML AMP ONE (08:23)
[2024-10-02] MEDS: ONDANSETRON 4 MG/2 ML VIAL IVP ONE (08:26)
[2024-10-02] MEDS: LACTATED RINGERS 1,000 ML IV SCH (08:26)
[2024-10-02 08:27] LABS: Glucose,Whole Blood 129 mg/dL (70-110)
[2024-10-02] MEDS: BUPIVACAINE (PF) 0.25% 30 ML VIAL SQ ONE (08:50)
[2024-10-02 09:16] LABS: Glucose,Whole Blood 133 mg/dL (70-110)
[2024-10-02] MEDS: HYDROmorphone 0.5 MG/0.5 ML SYRINGE IVP PRN (09:21)
--- NOTE | 2024-10-02 09:21 | P.OP ---
Date of Procedure: 10/02/24 Preoperative Diagnosis: Internal derangement left knee Postoperative Diagnosis: 1. Tear medial and lateral meniscus left knee 2. Grade IV chondromalacia medial femoral condyle left knee 3. Grade IV chondromalacia femoral sulcus left knee 4. Reactive synovitis medial, lateral and suprapatellar compartments left knee Procedure(s) Performed: 1. Arthroscopic partial medial and lateral meniscectomy left knee 2. Arthroscopic microfracture medial femoral condyle left knee 3. Arthroscopic microfracture femoral sulcus left knee 4. Arthroscopic partial synovectomy medial, lateral and suprapatellar compartments left knee Anesthesia: LIBRADOA, local Surgeon: Arian Figueroa Estimated Blood Loss (ml): 5 Pathology: none sent Condition: stable Disposition: PACU Indications for Procedure: 54-year-old patient who was seen with progressive left knee pain. After having treatment options discussed, he elected to proceed with arthroscopy. Operative Findings: See description of procedure Description of Procedure: Patient was taken to the operative suite. Patient underwent a general anesthetic by the department of anesthesia. Patient was given preoperative antibiotics. The left lower extremity was placed in a well-padded arthroscopic leg grace. The left leg was prepped and draped in the normal sterile orthopedic fashion. A lateral parapatellar and suprapatellar incision was made. Trochars were inserted. Arthroscopy was initiated. Suprapatellar pouch revealed diffuse thick reactive synovitis. The patellofemoral joint appeared to articulate congruently. There was grade I/II chondromalacia of the patella and grade III/IV chondromalacia of the femoral sulcus with osteochondral flap tears. The scope was guided into the medial gutter. No loose bodies or plica were identified. The scope was then guided into the medial compartment. A medial parapatellar incision was made. Trocar inserted followed by probe. There was a tear involving the posterior limb of the medial meniscus. There were grade III/IV chondromalacia changes medial femoral condyle weightbearing surface with osteochondral flap tears. There were grade II chondromalacia changes of the tibial plateau without tears. There was some thick reactive synovitis anteriorly. I performed a partial medial meniscectomy getting down to stable meniscal tissue. I performed a chondroplasty of the medial femoral condyle getting down to stable osteochondral tissue followed by partial synovectomy decompressing the reactive synovitis anteriorly. I did note an area of grade IV chondromalacia involving the weightbearing surface of the femoral condyle measuring just under centimeter. I had used a microfracture awl and I performed microfracture to that area penetrating the bone with resultant bleeding at the microfracture site. The residual meniscus was stable. The residual osteochondral surface was stable. There was good decompression of the synovitis. Scope and probe were then guided into the intercondylar notch. Cruciates were identified, probed and found to be stable. The scope and probe were then guided into lateral compartment. There was a tear involving the posterior and lateral meniscus. There were grade I chondromalacia changes lateral compartment without tears. There was some thick reactive synovitis anteriorly. I performed a partial lateral meniscectomy getting down to stable meniscal tissue. I performed a partial synovectomy decompressing the reactive synovitis. The residual meniscus was stable. There was good decompression of the synovitis. The scope was in guided back into the suprapatellar compartment. I introduced a motorized shaver into the suprapatellar compartment. I debrided some piecemeal fragments of meniscus I encountered. I performed a chondroplasty of the femoral sulcus getting down to stable osteochondral tissue followed by a partial synovectomy decompressing the reactive synovitis. I did note an area of exposed bone/grade IV chondromalacia involving the medial aspect of the femoral sulcus measuring just slightly over a centimeter. I introduced a 20 degree microfracture awl and I performed a microfracture to that area of exposed bone, penetrating the bone with resultant bleeding at the microfracture site. The residual osteochondral surface appeared stable. Instruments were now removed from the joint. The joint was infiltrated with .25% Marcaine. Steri-Strips wer e applied to the portal sites. Sterile dressings were applied. The patient was placed into a MARTHA hose. No tourniquet was utilized. The patient was awakened, transferred to a bed and taken to recovery stable satisfactory condition.
[2024-10-02 09:29] VITALS: TEMP 96.8
[2024-10-02] MEDS: HYDROcodone/APAP 5-325MG 1 EACH TAB PO STA (10:23)
[2024-10-02 11:01] VITALS: BP 115/70; PULSE 65; RESP 16
== END 2024-10-02 11:09 | disposition home or self-care (01) ==
LOC: OR 07:16
PROVIDERS: ATTEND Orthopaedic Surgery
DX: S83.282A Other tear of lateral meniscus, current injury, left knee, initial encounter (principal); S83.242A Other tear of medial meniscus, current injury, left knee, initial encounter; M65.962 Unspecified synovitis and tenosynovitis, left lower leg; M22.42 Chondromalacia patellae, left knee; I10 Essential (primary) hypertension; E78.5 Hyperlipidemia, unspecified; I48.91 Unspecified atrial fibrillation; G47.33 Obstructive sleep apnea (adult) (pediatric); E11.9 Type 2 diabetes mellitus without complications; Z79.899 Other long term (current) drug therapy; X58.XXXA Exposure to other specified factors, initial encounter; Z88.8 Allergy status to other drugs, medicaments and biological substances
CPT/HCPCS: 29879; 29880; J2250; J0330; J0690; J2405; J2003; J3010; J2704; J1171; J2371; J0665; J1596